=== PATIENT | male | born 1950 | race Caucasian/White ===

== ENCOUNTER 2016-05-15 16:58 | Emergency (ER) | payer OTHER ==
--- NOTE | 2016-05-15 18:04 | EKG REPORT ---
SEVERITY:- BORDERLINE ECG - SINUS RHYTHM BORDERLINE T ABNORMALITIES, ANTERIOR LEADS : Confirmed by: Shakir Joy MD 15-May-2016 18:03:16
[2016-05-15 18:11] LABS: ABSOLUTE BASOPHILS # (AUTO) 0.1 10^3/uL (0.0-0.2); ABSOLUTE EOSINOPHILS # (AUTO) 0.1 10^3/uL (0.0-0.6); ABSOLUTE LYMPHOCYTES (AUTO) 3.9 10^3/uL (0.5-4.7); ABSOLUTE NEUT (AUTO) 5.9 10^3/uL (1.7-8.2); BASOPHILS % (AUTO) 0.5 % (0-2); EOSINOPHILS % (AUTO) 0.7 % (0-6); HEMATOCRIT 46.4 % (37.9-51.0); HGB HCT DIFFERENCE -1.4; LYMPHOCYTES % (AUTO) 35.5 % (13-45); MEAN CORPUSCULAR HEMOGLOBIN 29.9 pg (27.0-33.4); MEAN CORPUSCULAR HGB CONC 32.4 g/dL (32.0-36.0); MEAN CORPUSCULAR VOLUME 92 fl (80-97); MONOCYTES % (AUTO) 9.5 % (3-13); RED BLOOD COUNT 5.04 10^6/uL (4.35-5.55); RED CELL DISTRIBUTION WIDTH 15.1 % (11.5-14.0); SEGMENTED NEUTROPHILS % (AUTO) 53.8 % (42-78)
--- NOTE | 2016-05-15 18:13 | ER Document Report ---
[id number] TRAVEL OUTSIDE OF THE [place] IN LAST 30 DAYS: No - HPI Onset: Other Onset/Duration: Persistent Associated symptoms: Other - see narrative Similar symptoms previously: Yes <TRACY BOOKER - Last Filed: 05/15/16 18:54> <OLIVE VARGAS - Last Filed: 05/18/16 01:23> - General Chief Complaint: Chest Pressure Stated Complaint: CHEST PRESSURE Notes: Patient is a 65-year-old male that presents to the emergency department today with complaints of chest pain, back pain, and a headache. Patient states the chest pain he is experiencing today is exactly like the chest pain he has been experiencing for "as long as he can remember". Patient states he felt like he was going to pass out prior to arrival. Patient states he has episodes like this frequently where he feels like he is going to pass out. Patient does note that his headache today is much worse than his normal headaches, he states it feels like someone is sticking an ice pick in the back of his head. Patient states his tongue feels "tingly". Patient states he has never had a CVA in the past. (TRACY BOOKER) - Related Data Allergies/Adverse Reactions: No Known Allergies Allergy (Verified 11/06/12 10:37) Past Medical History - General Information source: Patient, [facility] Records - Social History Smoking Status: Current Every Day Smoker Cigarette use (# per day): Yes Frequency of alcohol use: None Drug Abuse: None Lives with: Family Family History: Reviewed & Not Pertinent, CAD, Hyperlipidemia - Past Medical History Cardiac Medical History: Reports: Hx Coronary Artery Disease, Hx Hypercholesterolemia, Hx Peripheral Vascular Disease Pulmonary Medical History: Reports: Hx COPD Neurological Medical History: Reports: Hx Migraine, Hx Seizures GI Medical History: Reports: Hx Gastroesophageal Reflux Disease, Hx Hiatal Hernia, Hx Ulcer - PUD Musculoskeltal Medical History: Reports Hx Arthritis Psychiatric Medical History: Reports: Hx Anxiety, Hx Depression Past Surgical History: Reports: Hx Appendectomy, Hx Cardiac Catheterization - 8 stents placed, Hx Coronary Stent - X 7, Hx Tonsillectomy, Hx Vascular Surgery - LEFT ILIAC ARTERY STENTComment Only: Hx Bowel Surgery - EXPLORATORY STOMACH SURGERY - Immunizations Hx Diphtheria, Pertussis, Tetanus Vaccination: Yes Hx Pneumococcal Vaccination: 01/29/12 <TRACY BOOKER - Last Filed: 05/15/16 18:54> Review of Systems - Review of Systems Constitutional: No symptoms reported EENT: denies: Blurred vision Cardiovascular: See HPI, Chest pain, Syncope Respiratory: No symptoms reported Gastrointestinal: No symptoms reported Genitourinary: No symptoms reported Male Genitourinary: No symptoms reported Musculoskeletal: See HPI, Back pain Skin: No symptoms reported Hematologic/Lymphatic: No symptoms reported Neurological/Psychological: See HPI, Headaches -: Yes All other systems reviewed and negative <TRACY BOOKER - Last Filed: 05/15/16 18:54> Physical Exam <TRACY BOOKER - Last Filed: 05/15/16 18:54> <OLIVE VARGAS - Last Filed: 05/18/16 01:23> - Vital signs Vitals: Temp Resp BP Pulse Ox 97.9 F 21 H 124/77 98 05/15/16 17:20 05/15/16 17:20 05/15/16 17:20 05/15/16 17:20 (TRACY BOOKER) (OLIVE VARGAS) - Notes Notes: Physical Exam: General: Alert, appears well. HEENT: Normocephalic. Atraumatic. PERRL. Extraocular movements intact. Oropharynx clear. Neck: Supple. Non-tender. Respiratory: No respiratory distress. Clear and equal breath sounds bilaterally. Cardiovascular: Regular rate and rhythm. Abdominal: Healed midline scar. Non-tender. No distension. Normal Bowel Sounds. Back: Non-tender. No deformity or step off. Extremities: Moves all four extremities. Upper extremities: Normal inspection. Non-tender. Normal color. Normal ROM. Normal temperature. Lower extremities: Normal inspection. Non-tender. No edema. Normal color. Normal ROM. Normal temperature. Neurological: Normal cognition. AAOx4. Normal speech. Psychological: Normal affect. Normal Mood. Skin: Warm. Dry. Normal color. (TRACY BOOKER) Course - Laboratory Result Diagrams: 05/15/16 17:16 05/15/16 17:16 <TRACY BOOKER - Last Filed: 05/15/16 18:54> - Laboratory Result Diagrams: 05/15/16 17:16 05/15/16 17:16 <OLIVE VARGAS - Last Filed: 05/18/16 01:23> - Re-evaluation Re-evalutation: 05/15/16 20:51 I personally performed the services described in the documentation, reviewed and edited the documentation which was dictated to my scribe in my presence, and it accurately records my words and actions. Patient seen and evaluated for multiple complaints all of which are chronic in nature. He has a history of SC with cardiac stents but has chronic chest pain which he takes isosorbide for says the chest pain today is not any different than it is on a daily bright basis. It is not exertional in nature feels exactly same character quality frequency and duration. 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 [facility] stop giving him pain medications or the neurosurgeon won't give him any pain medications for chronic neck and back pain he thinks that's causing him to have a tension headache as he ran out of 4 days ago. He denies any headache blurred sees any blurred vision double vision strokelike symptoms weakness on one side body versus the other has normal neurological examination. Acute chest pain workup for chronic chest pain is negative acute EKG chest x-ray and labs. CT of the head is negative. Patient has chronic neck and back pain is been off of his medication for 4 days feels at that's what causing the pain as it has before when he ran out of his medication. Right now I don't think he has an acute pulmonary emboli acute coronary event. I am comfortable giving a few days with the pain medication but I can't be the primary prescriber that. He has not previously given him any pain medication here so he understands that that isn't something that can continue NSAIDs is to [facility] with [facility] in [facility]-2 days discussed reasons for ED return sooner (OLIVE VARGAS) - Vital Signs Vital signs: Temp Pulse Resp BP Pulse Ox 97.9 F 19 98/73 L 96 05/15/16 17:20 05/15/16 20:01 05/15/16 20:01 05/15/16 20:01 (TRACY BOOKER) (OLIVE VARAGS) - Laboratory Laboratory results interpreted by me: 05/15/16 05/15/16 17:16 18:45 WBC 11.0 H RDW 15.1 H Urine Blood SMALL H (OLIVE VARGAS) Discharge <JHONY,TRACY - Last Filed: 05/15/16 18:54> <OLIVE VARGAS - Last Filed: 05/18/16 01:23> - Discharge Clinical Impression: Chronic neck pain Cephalgia Qualifiers: Headache type: tension-type Headache chronicity pattern: unspecified pattern Intractability: not intractable Qualified Code(s): G44.209 - Tension-type headache, unspecified, not intractable Chest pain Qualifiers: Chest pain type: unspecified Qualified Code(s): R07.9 - Chest pain, unspecified Condition: Stable Disposition: HOME, SELF-CARE Additional Instructions: Headache The physician does not feel that the headache you are experiencing has a serious underlying cause. Most headaches are due to emotional stress, with resultant muscle tension (tension headache). Occasionally, headaches are secondary to changes in the blood vessels of the scalp (vascular headache and migraine headache). Sometimes, a headache is the first symptom of another developing illness, such as a viral infection. You have no evidence of stroke, bleeding, meningitis, or other serious cause of your headache. The treatment of headaches varies with the severity and cause of the pain. Not all headaches need pain shots. In fact, there is evidence that using narcotics for headaches may make them worse in the long run. The physician will determine the therapy that's in your best interest. If you develop a fever, if the headache is different from any you've previously experienced, or if the headache progressively worsens, then call your physician at once or go to the emergency room. Chest Pain of Unclear Cause The exact cause of your chest pain isn't clear. Fortunately, there is no evidence of a dangerous medical condition. Further testing may be required to find the source of the pain. Most often, we find that this pain is coming from the chest wall -- the muscles or rib joints in the chest. But chest pain can come from the lung and lung lining, the esophagus, the heart valves or heart lining, and even the stomach or gallbladder. Rest. Eat lightly until the pain is gone. We may prescribe medicine for pain and inflammation. You should call the physician immediately if the pain radiates to the shoulder, jaw or arms; if you start to run a fever or develop a cough; or if you develop shortness of breath, or other new or alarming symptoms. Chronic Pain Control Stress, inactivity, and depression make pain more severe regardless of the cause of the pain. Stress and poor physical condition can cause pain such as headaches and backache. Relaxation: Rest in a quiet place with your eyes closed for 20 minutes twice daily. Concentrate on a pleasant image, or simply "feel" your breathing. Clear your mind. Stress management: Deal with your "stressors." Either take action, or eliminate the stressor from your life. Don't let things hang over you. Accept those things you can't change. Nutrition: Eat small, balanced meals -- don't skip, don't overeat. Meals should be high-carbohydrate, low-sugar, low-fat. Exercise: Exercise helps painful conditions and eases stress. Get 30 minutes of moderate exercise, five days a week. Do an activity that does not flare your pain. Precautions: Pain which continues to disrupt daily activities, or which changes in nature, requires a medical evaluation. Pain Clinic referral is available. We do not manage chronic pain in the Emergency Department. We will try to appropriately help you through an acute flare of your chronic painful condition , but for on-going chronic pain that does not improve, you will need to see your private doctor or metal painter. We do not provide repeated medication management of chronic painful conditions. If you wish, we can provide the name of local pain management physicians. All up with her primary care physician tomorrow return for increasing worsening or new symptoms Prescriptions: Oxycodone HCl/Acetaminophen [Percocet 5-325 mg Tablet] 1 - 2 tab PO Q4H PRN #15 tablet PRN Reason: Scribe Documentation <TRACY BOOKER - Last Filed: 05/15/16 18:54> <OLIVE VARGAS - Last Filed: 05/18/16 01:23> - Scribe Written by Rajesh:: OLIVE VARGAS DO, SCRIBE 05/15/162050 Acting as scribe for: TRACY Mendez) (OLIVE VARGAS)
[2016-05-15 18:18] LABS: ANION GAP 12 (5-19); BLOOD UREA NITROGEN 14 mg/dL (7-20); CALCIUM 9.9 mg/dL (8.4-10.2); CARBON DIOXIDE 25 mmol/L (22-30); CHLORIDE 103 mmol/L (98-107); CREATININE RESULT 1.02 mg/dL (0.52-1.25); GLUCOSE 91 mg/dL (75-110); POTASSIUM 4.5 mmol/L (3.6-5.0)
[2016-05-15 18:31] LABS: TROPONIN I < 0.012 ng/mL
[2016-05-15 19:23] LABS: APPEARANCE,URINE CLEAR; BILIRUBIN,URINE NEGATIVE (NEGATIVE); GLUCOSE, URINE NEGATIVE (NEGATIVE); KETONES,URINE NEGATIVE (NEGATIVE); LEUKOCYTE ESTERASE,URINE NEGATIVE (NEGATIVE); NITRITE,URINE NEGATIVE (NEGATIVE); PROTEIN,URINE NEGATIVE (NEGATIVE); URINE SPECIFIC GRAVITY 1.008; UROBILINOGEN,URINE NEGATIVE mg/dL (<2.0)
[2016-05-15 19:35] LABS: URINE BARBITURATES SCREEN NEGATIVE; URINE METHADONE SCREEN NEGATIVE; URINE PHENCYCLIDINE SCREEN NEGATIVE
[2016-05-15 20:18] VITALS: BP 98/73
== END 2016-05-15 22:15 | disposition home or self-care (01) ==
LOC: ER 16:58
DX: G44.209 Tension-type headache, unspecified, not intractable (principal); R07.89 Other chest pain; M54.2 Cervicalgia; M54.9 Dorsalgia, unspecified; G89.29 Other chronic pain; H53.8 Other visual disturbances; R55 Syncope and collapse; R20.2 Paresthesia of skin; I25.10 Atherosclerotic heart disease of native coronary artery without angina pectoris; J44.9 Chronic obstructive pulmonary disease, unspecified; F17.210 Nicotine dependence, cigarettes, uncomplicated; Z98.61 Coronary angioplasty status; Z79.899 Other long term (current) drug therapy
CPT/HCPCS: 36415; 70450; 71010; 80048; 80307; 81001; 83880; 84484; 85025; 93005; 93010; 99285

== ENCOUNTER → 2016-07-31 | Outpatient (CLI) | payer MEDICAID | LOC: RAD 09:09 | PROVIDERS: ATTEND Surgery | DX: R10.30 Lower abdominal pain, unspecified (principal); K57.30 Diverticulosis of large intestine without perforation or abscess without bleeding; R91.1 Solitary pulmonary nodule; N26.1 Atrophy of kidney (terminal) | CPT/HCPCS: 74177; 82565 ==

== ENCOUNTER 2016-09-17 02:40 | Emergency (ER) | payer MEDICAID ==
[2016-09-17] MEDS ORDERED: ONDANSETRON HCL INJ/PF 4 MG/2 ML SDV IV ONE (03:46)
[2016-09-17] MEDS ORDERED: MORPHINE SULFATE 10 MG/ML INJ IV ONE (03:46)
--- NOTE | 2016-09-17 03:54 | ER Document Report ---
ED ENT - General Chief Complaint: Difficulty Swallowing Stated Complaint: UNABLE TO SWALLOW/DIFFICULTY BREATHING Time Seen by Provider: 09/17/16 03:39 Notes: Patient is a 66-year-old male who comes emergency department for chief complaint of sore throat, sensation of throat swelling, and difficulty swallowing. Symptoms started earlier today and have worsened throughout today. Patient states that he had left carotid endarterectomy performed at [facility] by Dr. hutchins and was discharged this morning. He denies fever or chills , nausea or vomiting, focal numbness or weakness, shortness of breath. Past medical history of COPD, hyperlipidemia, coronary artery disease, GERD. TRAVEL OUTSIDE OF THE [place] IN LAST 30 DAYS: No - Related Data Allergies/Adverse Reactions: No Known Allergies Allergy (Verified 11/06/12 10:37) Past Medical History - General Information source: Patient - Social History Smoking Status: Former Smoker Frequency of alcohol use: None Drug Abuse: None Lives with: Family Family History: Reviewed & Not Pertinent, CAD, Hyperlipidemia Patient has suicidal ideation: No Patient has homicidal ideation: No - Past Medical History Cardiac Medical History: Reports: Hx Coronary Artery Disease, Hx Hypercholesterolemia, Hx Peripheral Vascular Disease Denies: Hx Atrial Fibrillation, Hx Congestive Heart Failure, Hx Heart Attack , Hx Hypertension, Hx Pulmonary Embolism, Hx Heart Murmur Pulmonary Medical History: Reports: Hx COPD Denies: Hx Asthma, Hx Bronchitis, Hx Pneumonia, Hx Respiratory Failure, Hx Sleep Apnea, Hx Tuberculosis Neurological Medical History: Reports: Hx Migraine, Hx Seizures Endocrine Medical History: Denies: Hx Graves' Disease, Hx Hyperthyroidism, Hx Hypothyroidism Renal/ Medical History: Denies: Hx Benign Prostatic Hyperplasia, Hx End Stage Renal Disease, Hx Kidney Stones, Hx Peritoneal Dialysis Malignancy Medical History: Denies Hx Leukemia, Denies Hx Lung Cancer GI Medical History: Reports: Hx Gastroesophageal Reflux Disease, Hx Hiatal Hernia, Hx Ulcer - PUD . Denies: Hx Crohn's Disease, Hx Irritable Bowel, Hx Liver Failure Musculoskeltal Medical History: Reports Hx Arthritis, Denies Hx Fibromyalgia, Denies Hx Muscular Dystrophy Psychiatric Medical History: Reports: Hx Anxiety, Hx Depression Traumatic Medical History: Denies: Hx Fractures Infectious Medical History: Denies: Hx HIV Past Surgical History: Reports: Hx Appendectomy, Hx Cardiac Catheterization - 8 stents placed, Hx Coronary Stent - X 7, Hx Tonsillectomy, Hx Vascular Surgery - LEFT ILIAC ARTERY STENT. Denies: Hx Cholecystectomy, Hx Colostomy, Hx Coronary Artery Bypass Graft, Hx Gastric Bypass Surgery, Hx Herniorrhaphy, Hx Pacemaker. Comment Only: Hx Bowel Surgery - EXPLORATORY STOMACH SURGERY - Immunizations Hx Diphtheria, Pertussis, Tetanus Vaccination: Yes Hx Pneumococcal Vaccination: 01/29/12 Review of Systems - Review of Systems Constitutional: No symptoms reported EENT: See HPI Cardiovascular: No symptoms reported Respiratory: No symptoms reported Gastrointestinal: No symptoms reported Genitourinary: No symptoms reported Male Genitourinary: No symptoms reported Musculoskeletal: No symptoms reported Skin: No symptoms reported Hematologic/Lymphatic: No symptoms reported Neurological/Psychological: No symptoms reported Physical Exam - Vital signs Vitals: Temp Pulse Resp BP Pulse Ox 97.3 F 96 20 95/63 L 92 09/17/16 02:51 09/17/16 02:51 09/17/16 02:51 09/17/16 02:51 09/17/16 02:51 Interpretation: Normal - General General appearance: Alert, Anxious In distress: None - HEENT Head: Normocephalic, Atraumatic Eyes: Normal Conjunctiva: Normal Extraocular movements intact: Yes Eyelashes: Normal Pupils: PERRL Ears: Normal External canal: Normal Tympanic membrane: Normal Sinus: Normal Nasal: Normal Mouth/Lips: Normal Mucous membranes: Normal Pharynx: Erythema - Very mild erythema, no overt edema, tonsillar hypertrophy, or other abnormality noted Neck: Other - Stable wound over the left anterior lateral neck extending up near the jaw, no noted surrounding erythema, questionable mild swelling which is difficult to evaluate with patient's large neck - Respiratory Respiratory status: No respiratory distress Chest status: Nontender Breath sounds: Normal Chest palpation: Normal - Cardiovascular Rhythm: Regular Heart sounds: Normal auscultation Murmur: No - Abdominal Inspection: Normal Distension: No distension Bowel sounds: Normal Tenderness: Nontender Organomegaly: No organomegaly - Back Back: Normal, Nontender - Extremities General upper extremity: Normal inspection, Nontender, Normal color, Normal ROM , Normal temperature General lower extremity: Normal inspection, Nontender, Normal color, Normal ROM , Normal temperature, Normal weight bearing. No: Corinne's sign - Neurological Neuro grossly intact: Yes Cognition: Normal Orientation: AAOx4 Dante Coma Scale Eye Opening: Spontaneous [place] Coma Scale Verbal: Oriented Dante Coma Scale Motor: Obeys Commands [place] Coma Scale Total: 15 Speech: Normal Motor strength normal: LUE, RUE, LLE, RLE Sensory: Normal - Psychological Associated symptoms: Normal affect, Normal mood - Skin Skin Temperature: Warm Skin Moisture: Dry Skin Color: Normal Course - Re-evaluation Re-evalutation: Mild erythema of the throat with no significant swelling, no airway compromise. Patient has a large tongue and a large neck making it difficult to evaluate. Patient initially anxious but after small amount of morphine and Zofran and this resolved and he states his symptoms have resolved as well. CBC with mild leukocytosis which is nonspecific after surgery, chemistry unremarkable, strep is negative. Discussed with Dr. Sutherland. Called and spoke to physician air conditioning service technician for patient's surgeon, Dr. Swanson, he recommends that a CT of the neck soft tissues can be performed with contrast despite recent endarterectomy. He recommends this be performed if patient cannot be adequately evaluated for hematoma. Patient has a very large neck and this makes evaluation difficult, hard to tell if there is swelling or not. Discussed with patient, he agrees to CAT scan imaging. CAT scan imaging shows edema, slight swelling of the submandibular gland, postsurgical changes, no overt abnormality, no evidence of bleeding or abscess. Discussed again with Dr. Swanson, he states he will discuss with Dr. Culp and patient may be contacted for a closer follow-up, recommend ice pack to the area to reduce swelling, recommend patient return if symptoms worsen. Patient states he is ready to go home, satisfied with results, states understanding of return precautions and follow-up. Patient oxygenation on room air is slightly low, however he has COPD, his lungs are clear, he does not have tachypnea, he denies being short of breath, he states he feels good and he wants to go home. He ambulates without difficulty. - Vital Signs Vital signs: Temp Pulse Resp BP Pulse Ox 97.4 F 86 18 116/63 90 L 09/17/16 07:21 09/17/16 07:21 09/17/16 07:21 09/17/16 07:21 09/17/16 07:21 - Laboratory Result Diagrams: 09/17/16 03:50 09/17/16 03:50 Laboratory results interpreted by me: 09/17/16 03:50 WBC 13.8 H RDW 14.8 H Absolute Neutrophils 9.5 H Absolute Monocytes 1.5 H Discharge - Discharge Clinical Impression: Neck swelling, Post-operative state Condition: Stable Disposition: HOME, SELF-CARE Additional Instructions: The imaging shows some localized swelling but no bleeding into the tissue or evidence of infection. You can apply ice/cold packs to the area to reduce swelling. Continue your medications. I spoke with Dr. Swanson, air conditioning service technician for Dr. Culp, you may be contacted for closer followup than scheduled. Return immediately for any concerning worsening symptoms including difficulty breathing, worsening swelling, fever, etc.
[2016-09-17 04:05] LABS: ABSOLUTE BASOPHILS # (AUTO) 0.1 10^3/uL (0.0-0.2); ABSOLUTE EOSINOPHILS # (AUTO) 0.2 10^3/uL (0.0-0.6); ABSOLUTE LYMPHOCYTES (AUTO) 2.5 10^3/uL (0.5-4.7); ABSOLUTE MONOCYTES (AUTO) 1.5 10^3/uL (0.1-1.4); ABSOLUTE NEUT (AUTO) 9.5 10^3/uL (1.7-8.2); BASOPHILS % (AUTO) 0.9 % (0-2); EOSINOPHILS % (AUTO) 1.2 % (0-6); HEMATOCRIT 43.7 % (37.9-51.0); HEMOGLOBIN 14.7 g/dL (13.5-17.0); HGB HCT DIFFERENCE 0.4; LYMPHOCYTES % (AUTO) 18.3 % (13-45); MEAN CORPUSCULAR HEMOGLOBIN 30.6 pg (27.0-33.4); MEAN CORPUSCULAR HGB CONC 33.5 g/dL (32.0-36.0); MEAN CORPUSCULAR VOLUME 91 fl (80-97); MONOCYTES % (AUTO) 10.6 % (3-13); RED CELL DISTRIBUTION WIDTH 14.8 % (11.5-14.0); WHITE BLOOD COUNT 13.8 10^3/uL (4.0-10.5)
[2016-09-17 04:54] LABS: ALANINE AMINOTRANSFERASE 21 U/L (21-72); ALBUMIN 3.6 g/dL (3.5-5.0); ALKALINE PHOSPHATASE 97 U/L (38-126); ANION GAP 10 (5-19); ASPARTATE AMINO TRANSFERASE 18 U/L (17-59); BILIRUBIN,DIRECT 0.4 mg/dL (0.0-0.4); BILIRUBIN,TOTAL 0.9 mg/dL (0.2-1.3); BLOOD UREA NITROGEN 12 mg/dL (7-20); CARBON DIOXIDE 27 mmol/L (22-30); CHLORIDE 101 mmol/L (98-107); CREATININE RESULT 0.96 mg/dL (0.52-1.25); GLUCOSE 110 mg/dL (75-110); POTASSIUM 4.5 mmol/L (3.6-5.0); SODIUM 138.3 mmol/L (137-145); TOTAL PROTEIN 6.6 g/dL (6.3-8.2)
[2016-09-17 07:22] VITALS: BP 116/63
== END 2016-09-17 07:22 | disposition home or self-care (01) ==
LOC: ER 02:40
DX: T81.9XXA Unspecified complication of procedure, initial encounter (principal); R22.1 Localized swelling, mass and lump, neck; R06.02 Shortness of breath; J02.9 Acute pharyngitis, unspecified; Z87.891 Personal history of nicotine dependence
CPT/HCPCS: 99284; 96374; 96375; 36415; 87070; 87880; 85025; 80053; 70491; J2270; J2405

== ENCOUNTER 2018-04-04 16:19 | Observation (INO) | payer OTHER, MEDICAID ==
[2018-04-04 17:06] LABS: ABSOLUTE BASOPHILS # (AUTO) 0.1 10^3/uL (0.0-0.2); ABSOLUTE EOSINOPHILS # (AUTO) 0.1 10^3/uL (0.0-0.6); ABSOLUTE MONOCYTES (AUTO) 0.7 10^3/uL (0.1-1.4); ABSOLUTE NEUT (AUTO) 8.2 10^3/uL (1.7-8.2); BASOPHILS % (AUTO) 0.9 % (0-2); EOSINOPHILS % (AUTO) 0.9 % (0-6); HEMATOCRIT 46.4 % (37.9-51.0); HEMOGLOBIN 15.9 g/dL (13.5-17.0); LYMPHOCYTES % (AUTO) 17.7 % (13-45); MEAN CORPUSCULAR HEMOGLOBIN 32.5 pg (27.0-33.4); MEAN CORPUSCULAR HGB CONC 34.3 g/dL (32.0-36.0); MEAN CORPUSCULAR VOLUME 95 fl (80-97); MONOCYTES % (AUTO) 6.7 % (3-13); PLATELET COUNT 149 10^3/uL (150-450); RED BLOOD COUNT 4.89 10^6/uL (4.35-5.55); RED CELL DISTRIBUTION WIDTH 14.3 % (11.5-14.0); SEGMENTED NEUTROPHILS % (AUTO) 73.8 % (42-78); TOTAL CELLS COUNTED % (AUTO) 100 %; WHITE BLOOD COUNT 11.1 10^3/uL (4.0-10.5)
[2018-04-04] MEDS: NORMAL SALINE 1000 ML 1,000 ML IV PRN ×2 (17:18→19:19)
[2018-04-04 17:21] LABS: ALANINE AMINOTRANSFERASE 22 U/L (21-72); ALBUMIN 3.7 g/dL (3.5-5.0); ALKALINE PHOSPHATASE 75 U/L (38-126); ANION GAP 9 (5-19); ASPARTATE AMINO TRANSFERASE 17 U/L (17-59); BILIRUBIN,DIRECT 0.3 mg/dL (0.0-0.4); BILIRUBIN,TOTAL 0.5 mg/dL (0.2-1.3); BLOOD UREA NITROGEN 18 mg/dL (7-20); CALCIUM 9.2 mg/dL (8.4-10.2); CARBON DIOXIDE 27 mmol/L (22-30); CHLORIDE 102 mmol/L (98-107); CREATINE KINASE 40 U/L (55-170); GLUCOSE 101 mg/dL (75-110); POTASSIUM 4.7 mmol/L (3.6-5.0); SODIUM 137.5 mmol/L (137-145); TOTAL PROTEIN 6.8 g/dL (6.3-8.2)
[2018-04-04 17:34] LABS: CREATINE KINASE MB 0.67 ng/mL (<4.55)
[2018-04-04 17:35] LABS: TROPONIN I < 0.012 ng/mL
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
[2018-04-04 18:09] LABS: APPEARANCE,URINE SLIGHTLY-CLOUDY; BILIRUBIN,URINE NEGATIVE (NEGATIVE); COLOR,URINE YELLOW; GLUCOSE, URINE NEGATIVE (NEGATIVE); KETONES,URINE NEGATIVE (NEGATIVE); LEUKOCYTE ESTERASE,URINE NEGATIVE (NEGATIVE); NITRITE,URINE NEGATIVE (NEGATIVE); PROTEIN,URINE 30 mg/dL (NEGATIVE)
--- NOTE | 2018-04-04 18:22 | RADIOLOGY REPORT (SQ) ---
EXAM DESCRIPTION: CT HEAD WITHOUT COMPLETED DATE/TIME: 04/04/2018 6:07 pm REASON FOR STUDY: LOC, ? Seizure COMPARISON: 05/15/2016 TECHNIQUE: Axial images acquired through the brain without intravenous contrast. Images reviewed wi th bone, brain and subdural windows. Additional sagittal and coronal reconstructions were generated. Images stored on PACS. All CT scanners at this facility use dose modulation, iterative reconstruction, and/or weight based d osing when appropriate to reduce radiation dose to as low as reasonably achievable (ALARA). [facility]: Dose Right [facility]: CareDose [facility]: Dose Right [facility]: Teradose 4D [facility]: Smart WOWIO RADIATION DOSE: CT Rad equipment meets quality standard of care and radiation dose reduction techniq ues were employed. CTDIvol: 53.2 mGy. DLP: 1097 mGy-cm. mGy. LIMITATIONS: None. FINDINGS: VENTRICLES: Normal size and contour. CEREBRUM: No masses. No hemorrhage. No midline shift. No evidence for acute infarction. Normal gra y/white matter differentiation. No areas of low density in the white matter. CEREBELLUM: No masses. No hemorrhage. No alteration of density. No evidence for acute infarction. EXTRAAXIAL SPACES: No fluid collections. No masses. ORBITS AND GLOBE: No intra- or extraconal masses. Normal contour of globe without masses. CALVARIUM: No fracture. PARANASAL SINUSES: No fluid or mucosal thickening. SOFT TISSUES: No mass or hematoma. OTHER: No other significant finding. IMPRESSION: NORMAL BRAIN CT WITHOUT CONTRAST. EVIDENCE OF ACUTE STROKE: NO. COMMENT: Quality ID # [id number]: Final reports with documentation of one or more dose reduction techniques (e.g., Automated exposure control, adjustment of the mA and/or kV according to patient size, use of iterative reconstruction technique) TECHNICAL DOCUMENTATION: JOB ID: [id number] [employer]- All Rights Reserved Reading location - IP/workstation name: BE
[2018-04-04 19:13] LABS: URINE AMPHETAMINES SCREEN NEGATIVE; URINE BARBITURATES SCREEN NEGATIVE; URINE BENZODIAZEPINES SCREEN NEGATIVE; URINE COCAINE SCREEN NEGATIVE; URINE MARIJUANA (THC) SCREEN UNCONFIRMED POSITIVE; URINE METHADONE SCREEN NEGATIVE; URINE PHENCYCLIDINE SCREEN NEGATIVE
[2018-04-04] MEDS ORDERED: IPRATROPIUM/ALBUTEROL 0.5-2.5 MG/3 ML AMPUL NEB PRN (19:50)
[2018-04-04] MEDS ORDERED: ACETAMINOPHEN 325 MG TABLET PO PRN (19:50)
[2018-04-04] MEDS ORDERED: PROMETHAZINE HCL 25 MG TABLET PO PRN (20:09)
[2018-04-04] MEDS ORDERED: NITROGLYCERIN 0.4 MG/TAB 25 TAB/BOTTLE SL PRN (20:11)
[2018-04-04] MEDS ORDERED: TRAZODONE HCL 50 MG TABLET PO PRN (20:14)
[2018-04-04] MEDS: METOPROLOL TARTRATE 50 MG TABLET PO SCH (21:28)
[2018-04-04] MEDS: PREGABALIN 75 MG CAPSULE PO SCH (21:28)
[2018-04-04] MEDS: ATORVASTATIN CALCIUM 80 MG TABLET PO SCH (21:29)
[2018-04-04] MEDS: BUDESONIDE/FORMOTEROL 160-4.5 MCG 60 PUFF/6 GM MDI IH SCH (21:29)
[2018-04-04] MEDS: OXYCODONE HCL IR 5 MG TABLET PO PRN (21:29)
[2018-04-04] MEDS: LANSOPRAZOLE 15 MG TAB.RAP.DR PO SCH (21:33)
[2018-04-04] MEDS: ENOXAPARIN SODIUM INJ 40 MG/0.4 ML DISP.SYRIN SUBCUT SCH (21:34)
--- NOTE | 2018-04-04 22:39 | EKG REPORT ---
SEVERITY:- NORMAL ECG - SINUS RHYTHM : Confirmed by: Ryan Ocasio 04-Apr-2018 22:38:33
[2018-04-05 05:31] LABS: ABSOLUTE BASOPHILS # (AUTO) 0.1 10^3/uL (0.0-0.2); ABSOLUTE EOSINOPHILS # (AUTO) 0.1 10^3/uL (0.0-0.6); ABSOLUTE LYMPHOCYTES (AUTO) 3.8 10^3/uL (0.5-4.7); ABSOLUTE MONOCYTES (AUTO) 0.8 10^3/uL (0.1-1.4); ABSOLUTE NEUT (AUTO) 4.6 10^3/uL (1.7-8.2); BASOPHILS % (AUTO) 0.8 % (0-2); EOSINOPHILS % (AUTO) 1.4 % (0-6); HEMATOCRIT 44.3 % (37.9-51.0); HEMOGLOBIN 15.3 g/dL (13.5-17.0); LYMPHOCYTES % (AUTO) 40.7 % (13-45); MEAN CORPUSCULAR HGB CONC 34.5 g/dL (32.0-36.0); MEAN CORPUSCULAR VOLUME 96 fl (80-97); MONOCYTES % (AUTO) 8.6 % (3-13); PLATELET COUNT 157 10^3/uL (150-450); RED BLOOD COUNT 4.64 10^6/uL (4.35-5.55); RED CELL DISTRIBUTION WIDTH 14.1 % (11.5-14.0); SEGMENTED NEUTROPHILS % (AUTO) 48.5 % (42-78); TOTAL CELLS COUNTED % (AUTO) 100 %; WHITE BLOOD COUNT 9.4 10^3/uL (4.0-10.5)
[2018-04-05 05:52] LABS: ANION GAP 10 (5-19); BLOOD UREA NITROGEN 17 mg/dL (7-20); CALCIUM 8.8 mg/dL (8.4-10.2); CARBON DIOXIDE 26 mmol/L (22-30); CHLORIDE 107 mmol/L (98-107); GLUCOSE 94 mg/dL (75-110); POTASSIUM 5.1 mmol/L (3.6-5.0); SODIUM 143.1 mmol/L (137-145)
[2018-04-05] MEDS: LANSOPRAZOLE 15 MG TAB.RAP.DR PO SCH ×2 (06:17→16:32)
[2018-04-05] MEDS ORDERED: ISOSORBIDE MONONITRATE 60 MG TAB.ER.24H PO SCH (10:00)
[2018-04-05] MEDS: METOPROLOL TARTRATE 50 MG TABLET PO SCH (10:14)
[2018-04-05] MEDS: ISOSORBIDE MONONITRATE 30 MG TAB.ER.24H PO SCH (10:14)
[2018-04-05] MEDS: CITALOPRAM HYDROBROMIDE 20 MG TABLET PO SCH (10:14)
[2018-04-05] MEDS: DOCUSATE SODIUM 100 MG CAPSULE PO SCH ×2 (10:14→16:32)
[2018-04-05] MEDS: ASPIRIN 81 MG TABLET, CHEWABLE PO SCH (10:14)
[2018-04-05] MEDS: CLOPIDOGREL BISULFATE 75 MG TABLET PO SCH (10:15)
[2018-04-05] MEDS: BUDESONIDE/FORMOTEROL 160-4.5 MCG 60 PUFF/6 GM MDI IH SCH ×2 (10:15→21:15)
[2018-04-05] MEDS: ENOXAPARIN SODIUM INJ 40 MG/0.4 ML DISP.SYRIN SUBCUT SCH (10:15)
[2018-04-05] MEDS: PREGABALIN 75 MG CAPSULE PO SCH ×2 (10:15→21:15)
[2018-04-05] MEDS: OXYCODONE HCL IR 5 MG TABLET PO PRN ×3 (10:17→22:24)
[2018-04-05] MEDS ORDERED: LORAZEPAM INJ 2 MG/1 ML VIAL IV PRN (12:16)
--- NOTE | 2018-04-05 13:16 | EEG PRO FEE REPORT ---
EEG INTERPRETATION PATIENT NAME: LILLY VEGA ROOM#: [id number] ORDER#: [id number] DATE OF STUDY: 04/05/2018 : 1950 REFERRING MD: ELEAZAR RENNER MD MEDICATIONS: Tylenol, aspirin, DuoNeb, Lipitor, Symbicort, Celexa, Plavix, Lovenox, Imdur, Lansoprazole, Lopressor, Nitroglycerin, Oxycodone, Lyrica, Trazodone, Phenergan History This is a 67 year old right handed man with a history of COPD, cardiac catheterization with 8 stents placed, hypertension, migraine, hernia, solitary kidney, diverticulitis, peptic ulcer disease, stomach resection, left iliac artery stents and a history of syncope since age 22. He describes being at home, feeling weak, and passing out. This EEG was requested for possible seizures. EEG Interpretation This EEG was recorded in the awake, drowsy, and stage 1 sleep states. The awake EEG is characterized by a fairly well organized background with a well developed and reactive posterior dominant rhythm of 8.5 Hz. Drowsiness is characterized by slowing of the background rhythms. Vertex waves were seen in the midline head regions. There were several small arousals during stage I sleep. Stage II sleep was not obtained. Photic stimulation resulted in no significant changes. There were no epileptiform abnormalities. The EKG showed a regular rhythm in the high 50s. There were several electrode pops impairing interpretation. EEG Impression This EEG is within normal limits for age. There were arousals during stage I sleep and snoring noted by the cath lab technologist that may warrant further investigation (e.g. sleep study). The EKG showed a heart rate in the high 50s that may warrant investigation. INTERPRETING PHYSICIAN: BECKI REYES M.D. /: GREG TT: 1259 ID: [id number] /: [id number] TD: [id number] JOB: [id number] cc:Handy NELSON M.D. ENRICO versace, MD > MTDD
[2018-04-05] MEDS: NICOTINE 21 MG/24 HR PATCH.TD24 TD SCH (15:01)
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
[2018-04-05] MEDS ORDERED: LEVETIRACETAM 500 MG TABLET PO ONE (15:30)
--- NOTE | 2018-04-05 19:41 | PDOC PROGRESS REPORT ---
Subjective Progress Note for:: 04/05/18 - Seen on rounds this morning Subjective:: Spoke with family and patient at bedside. He has not had a seizure episode since admission. I talked to his and patient and the symptoms and presenting history is very indicating of a seizure activity. Reason For Visit: POSSIBLE SEIZUFRE, SYNCOPE Physical Exam Vital Signs: Temp Pulse Resp BP Pulse Ox 98.1 F 60 19 111/60 95 04/05/18 16:29 04/05/18 16:29 04/05/18 16:29 04/05/18 16:29 04/05/18 16:29 Intake & Output 04/04/18 04/05/18 04/06/18 06:59 06:59 06:59 Intake Total 1000 820 Balance 1000 820 Weight 245 lb 5.992 oz General appearance: PRESENT: no acute distress Head exam: PRESENT: atraumatic, normocephalic Eye exam: PRESENT: EOMI. ABSENT: conjunctival injection, scleral icterus Ear exam: PRESENT: normal external ear exam Neck exam: PRESENT: tracheal deviation Respiratory exam: PRESENT: clear to auscultation diego, symmetrical Cardiovascular exam: PRESENT: +S1, +S2 Pulses: PRESENT: +2 pedal pulses bilateral GI/Abdominal exam: PRESENT: normal bowel sounds, soft. ABSENT: tenderness Extremities exam: ABSENT: pedal edema Neurological exam: PRESENT: alert, awake, oriented to person, oriented to place , oriented to time, oriented to situation, reflexes normal, CN II-XII grossly intact Skin exam: PRESENT: dry, warm Results Laboratory Results: 04/05/18 05:06 04/05/18 05:06 04/05/18 04/05/18 05:06 05:06 WBC 9.4 RBC 4.64 Hgb 15.3 Hct 44.3 MCV 96 MCH 33.0 MCHC 34.5 RDW 14.1 H Plt Count 157 Seg Neutrophils % 48.5 Lymphocytes % 40.7 Monocytes % 8.6 Eosinophils % 1.4 Basophils % 0.8 Absolute Neutrophils 4.6 Absolute Lymphocytes 3.8 Absolute Monocytes 0.8 Absolute Eosinophils 0.1 Absolute Basophils 0.1 Sodium 143.1 Potassium 5.1 H Chloride 107 Carbon Dioxide 26 Anion Gap 10 BUN 17 Creatinine 1.01 Est GFR ( Amer) > 60 Est GFR (Non-Af Amer) > 60 Glucose 94 Calcium 8.8 Magnesium 2.1 04/04/18 04/05/18 04/05/18 23:05 05:06 10:00 Troponin I < 0.012 < 0.012 < 0.012 Impressions: Head CT 04/04/18 17:54 IMPRESSION: NORMAL BRAIN CT WITHOUT CONTRAST. EVIDENCE OF ACUTE STROKE: NO. Assessment & Plan - Diagnosis (1) COPD (chronic obstructive pulmonary disease) Qualifiers: COPD type: unspecified COPD Qualified Code(s): J44.9 - Chronic obstructive pulmonary disease, unspecified Is this a current diagnosis for this admission?: Yes (2) Depression Qualifiers: Depression Type: unspecified Qualified Code(s): F32.9 - Major depressive disorder, single episode, unspecified Is this a current diagnosis for this admission?: Yes (3) Hypotension Qualifiers: Hypotension type: other hypotension type Qualified Code(s): I95.89 - Other hypotension Is this a current diagnosis for this admission?: Yes (4) Loss of consciousness Is this a current diagnosis for this admission?: Yes (5) Seizure Is this a current diagnosis for this admission?: Yes (6) CAD (coronary artery disease) Qualifiers: Coronary Disease-Associated Artery/Lesion type: [place] artery Associated angina: without angina Is this a current diagnosis for this admission?: Yes - Plan Summary Plan Summary: Seizure-given the story and symptoms presented by patient and it is evident that he has had a seizure. Patient admits to me that he has been having these episodes since he was in his 20s. He tells me that his last episode of about 2 years ago. He did not tell me of any provoking factors in the last few days that would have brought about the seizure. He underwent EEG and it was normal. They do however recommend possible sleep study and noted bradycardia. At this point I have decided to load him with Keppra and continue from tomorrow. I discussed with patient and about following up with neurologist regarding his seizures. If he remains asymptomatic then we will consider discharging him in a.m.
[2018-04-05] MEDS: ATORVASTATIN CALCIUM 80 MG TABLET PO SCH (21:14)
[2018-04-05] MEDS: METOPROLOL TARTRATE 25 MG TABLET PO SCH (21:14)
[2018-04-06] MEDS: OXYCODONE HCL IR 5 MG TABLET PO PRN ×2 (04:27→10:26)
[2018-04-06] MEDS: LANSOPRAZOLE 15 MG TAB.RAP.DR PO SCH (05:02)
[2018-04-06] MEDS: METOPROLOL TARTRATE 25 MG TABLET PO SCH (09:39)
[2018-04-06] MEDS: ISOSORBIDE MONONITRATE 30 MG TAB.ER.24H PO SCH (09:39)
[2018-04-06] MEDS: ASPIRIN 81 MG TABLET, CHEWABLE PO SCH (09:39)
[2018-04-06] MEDS: CITALOPRAM HYDROBROMIDE 20 MG TABLET PO SCH (09:39)
[2018-04-06] MEDS: NICOTINE 21 MG/24 HR PATCH.TD24 TD SCH (09:39)
[2018-04-06] MEDS: PREGABALIN 75 MG CAPSULE PO SCH (09:39)
[2018-04-06] MEDS: DOCUSATE SODIUM 100 MG CAPSULE PO SCH (09:39)
[2018-04-06] MEDS: BUDESONIDE/FORMOTEROL 160-4.5 MCG 60 PUFF/6 GM MDI IH SCH (09:40)
[2018-04-06] MEDS: ENOXAPARIN SODIUM INJ 40 MG/0.4 ML DISP.SYRIN SUBCUT SCH (09:40)
[2018-04-06] MEDS: CLOPIDOGREL BISULFATE 75 MG TABLET PO SCH (09:40)
[2018-04-06] MEDS ORDERED: LEVETIRACETAM 500 MG TABLET PO SCH (10:00)
--- NOTE | 2018-04-06 11:54 | PDOC DISCHARGE SUMMARY ---
General - Admit/Disc Date/PCP Admission Date/Primary Care Provider: 04/04/18 19:27 JONI CANO MD Discharge Date: 04/06/18 - seen on rounds this morning - Discharge Diagnosis (1) COPD (chronic obstructive pulmonary disease) Is this a current diagnosis for this admission?: Yes (2) Depression Is this a current diagnosis for this admission?: Yes (3) Hypotension Is this a current diagnosis for this admission?: Yes (4) Loss of consciousness Is this a current diagnosis for this admission?: Yes (5) Seizure Is this a current diagnosis for this admission?: Yes (6) CAD (coronary artery disease) Is this a current diagnosis for this admission?: Yes (7) Hyperprolactinemia Is this a current diagnosis for this admission?: Yes - Additional Information Resuscitation Status: Full Code Discharge Diet: As Tolerated Discharge Activity: Activity As Tolerated, Slowly Increase Activity Prescriptions: Levetiracetam [Keppra 500 mg Tablet] 500 mg PO DAILY #30 tablet Home Medications: Albuterol Sulfate [Proair HFA Inhalation Aerosol 8.5 gm MDI] 1 puff IH Q6HP PRN 04/04/18 Aspirin [Ecotrin 81 mg EC Tablet] 81 mg PO DAILY 04/04/18 Atorvastatin Calcium [Lipitor 40 mg Tablet] 40 mg PO QHS 04/04/18 Citalopram Hydrobromide [Celexa 20 mg Tablet] 20 mg PO DAILY 04/04/18 Clopidogrel Bisulfate [Plavix 75 mg Tablet] 75 mg PO DAILY 04/04/18 Ipratropium/Albuterol Sulfate [Combivent Respimat 4 gm Mdi] 1 puff IH Q6 Metoprolol Tartrate [Lopressor 25 mg Tablet] 25 mg PO Q12 04/04/18 Nitroglycerin [Nitrostat 0.4 mg (1/150 Gr) Tabs 25/Bottle] 1 tab SL Q5MP PRN 10/15 [place]-3 Acid Ethyl Esters [Lovaza 1 gm Capsule] 1 gm PO DAILY 04/04/18 Omeprazole 40 mg PO DAILY 04/04/18 Oxycodone HCl [Oxy-Ir 5 mg Tablet] 5 mg PO Q6HP PRN 04/04/18 Budesonide/Formoterol Fumarate [Symbicort HFA 80-4.5 mcg Inhaler 6.9 gm] 2 puff IH Q12 04/05/18 Isosorbide Mononitrate [Imdur 30 mg Tablet.er] 30 mg PO DAILY 04/05/18 Pregabalin [Lyrica 75 mg Capsule] 75 mg PO Q12 04/05/18 Ranolazine [Ranexa 500 mg Tab.sr] 500 mg PO Q12 04/05/18 Acetaminophen [Tylenol 325 mg Tablet] 650 mg PO Q4HP PRN tablet 04/06/18 Aspirin [Aspirin 81 mg Chewable Tablet] 81 mg PO DAILY tab.chew 04/06/18 Budesonide/Formoterol Fumarate [Symbicort HFA 160-4.5 mcg Inhaler 6 gm] 2 puff IH Q12 inhaler 04/06/18 Citalopram Hydrobromide [Celexa 20 mg Tablet] 40 mg PO DAILY tablet 04/06/18 Clopidogrel Bisulfate [Plavix 75 mg Tablet] 75 mg PO DAILY tablet 04/06/18 Isosorbide Mononitrate [Imdur 30 mg Tablet.er] 30 mg PO DAILY tab.er.24h Levetiracetam [Keppra 500 mg Tablet] 500 mg PO DAILY #30 tablet 04/06/18 Lorazepam [Ativan Inj 2 mg/1 ml Vial] 1 mg IV Q2HP PRN vial 04/06/18 Metoprolol Tartrate [Lopressor 25 mg Tablet] 25 mg PO Q12 tablet 04/06/18 Nitroglycerin [Nitrostat 0.4 mg (1/150 Gr) Tabs 25/Bottle] 1 tab SL Q5MP PRN bottle 04/06/18 Pregabalin [Lyrica 75 mg Capsule] 75 mg PO Q12 capsule 04/06/18 History of Present Illness History of Present Illness: LILLY VEGA is a 67 year old male who was admitted for seizures. please see H& P for full A&P Hospital Course Hospital Course: after admission he was placed on telemetry to monitor him. he had an EEG which did not show any abnormal with his brain waves. i discussed his symptoms with him. he's been having these seizure spells since he was 22 years old. he has never been to anything for it. advised him to go to neurology multiple times- states he will go. his prolactin was elevated- slightly- not sure why- medication related?. i spoke to him about this- advised to talk to his neurologist about this within 1-2 weeks. repeat prolactin in 1-2 months. for his seizures i did start him on keppra for now- advised to talk to his pcp and neurologist about whether to continue or not. he did not have any more seizure episodes since admission- today he's requesting to leave- discussed about MRI brain for his prolactin but he's reluctant to stay- wants to go home. he wants to follow up outpatient. gave strict return precautions. Physical Exam Vital Signs: Temp Pulse Resp BP Pulse Ox 97.4 F 98 14 108/52 L 95 04/06/18 07:51 04/06/18 10:32 04/06/18 10:32 04/06/18 07:51 04/06/18 10:32 Intake & Output 04/05/18 04/06/18 04/07/18 06:59 06:59 06:59 Intake Total 1000 1322 50 Balance 1000 1322 50 Weight 245 lb 5.992 oz 243 lb 6.245 oz General appearance: PRESENT: no acute distress Head exam: PRESENT: atraumatic, normocephalic Eye exam: PRESENT: EOMI. ABSENT: conjunctival injection, scleral icterus Ear exam: PRESENT: normal external ear exam Mouth exam: PRESENT: tongue midline Teeth exam: PRESENT: poor dentation Neck exam: ABSENT: tracheal deviation Respiratory exam: PRESENT: clear to auscultation [place], symmetrical Pulses: PRESENT: +2 pedal pulses bilateral GI/Abdominal exam: PRESENT: normal bowel sounds, soft. ABSENT: tenderness Neurological exam: PRESENT: alert, awake, oriented to person, oriented to place , oriented to time, oriented to situation, CN II-XII grossly intact Psychiatric exam: ABSENT: homicidal ideation, suicidal ideation Skin exam: PRESENT: dry, warm Results Laboratory Results: 04/05/18 05:06 04/05/18 05:06 04/04/18 04/05/18 04/05/18 23:05 05:06 10:00 Troponin I < 0.012 < 0.012 < 0.012 Impressions: Head CT 04/04/18 17:54 IMPRESSION: NORMAL BRAIN CT WITHOUT CONTRAST. EVIDENCE OF ACUTE STROKE: NO. Qualifiers - * PATIENT BEING DISCHARGED WITH ANY OF THE FOLLOWING DIAGNOSIS: No Plan Time Spent: Less than 30 Minutes
[2018-04-06 12:09] VITALS: BP 104/56
== END 2018-04-06 12:00 | disposition home or self-care (01) ==
LOC: ER 16:19 → EH 19:27 → INTOOBSV 19:27 → 4S 22:40
PROVIDERS: ADMIT Internal Medicine; ATTEND Internal Medicine
PROC: HZ31ZZZ Individual Counseling for Substance Abuse Treatment, Behavioral (ICD-10-PCS; principal; 2018-04-05)
DX: R55 Syncope and collapse (principal); R56.9 Unspecified convulsions; I95.89 Other hypotension; J44.9 Chronic obstructive pulmonary disease, unspecified; E22.1 Hyperprolactinemia; F32.9 Major depressive disorder, single episode, unspecified; I25.10 Atherosclerotic heart disease of native coronary artery without angina pectoris; R32 Unspecified urinary incontinence; R19.7 Diarrhea, unspecified; I73.9 Peripheral vascular disease, unspecified; R51 Headache; R60.0 Localized edema; R11.2 Nausea with vomiting, unspecified; M54.9 Dorsalgia, unspecified; I71.4 Abdominal aortic aneurysm, without rupture; F41.9 Anxiety disorder, unspecified; F17.210 Nicotine dependence, cigarettes, uncomplicated; M51.36 Other intervertebral disc degeneration, lumbar region; G89.29 Other chronic pain; M54.2 Cervicalgia; R00.1 Bradycardia, unspecified; R10.13 Epigastric pain; E78.5 Hyperlipidemia, unspecified; I10 Essential (primary) hypertension; Z79.02 Long term (current) use of antithrombotics/antiplatelets; I25.2 Old myocardial infarction; Z79.82 Long term (current) use of aspirin; Z79.899 Other long term (current) drug therapy; Z95.5 Presence of coronary angioplasty implant and graft; Z87.828 Personal history of other (healed) physical injury and trauma; Z90.49 Acquired absence of other specified parts of digestive tract; Z95.828 Presence of other vascular implants and grafts; Z82.49 Family history of ischemic heart disease and other diseases of the circulatory system
CPT/HCPCS: 95819 ×2; 93005; 99285; 36415 ×2; 82553; 80307 ×2; 82550; 83735; 85025 ×2; 80048; 80053; 81001; 84484 ×2; 84146; 70450; 93010; 99406; G0378 ×4; J3490 ×3; J1650 ×2; J7030

== ENCOUNTER → 2018-06-13 | Outpatient (CLI) | payer OTHER, MEDICARE, MEDICAID ==
--- NOTE | 2018-06-13 14:09 | RADIOLOGY REPORT (SQ) ---
EXAM DESCRIPTION: CHEST PA/LATERAL COMPLETED DATE/TIME: 06/13/2018 1:23 pm REASON FOR STUDY: COUGH R05 COMPARISON: Two-view chest 06/18/2014 AP chest 05/15/2016 EXAM PARAMETERS: NUMBER OF VIEWS: two views TECHNIQUE: Digital Frontal and Lateral radiographic views of the chest acquired. RADIATION DOSE: NA LIMITATIONS: none FINDINGS: LUNGS AND PLEURA: No opacities, masses or pneumothorax. No pleural effusion. MEDIASTINUM AND HILAR STRUCTURES: No masses or contour abnormalities. HEART AND VASCULAR STRUCTURES: Heart normal size. No evidence for failure. Faintly radiopaque right coronary artery stent BONES: No acute findings. HARDWARE: None in the chest. OTHER: No other significant finding. IMPRESSION: NO SIGNIFICANT RADIOGRAPHIC FINDING IN THE CHEST. TECHNICAL DOCUMENTATION: JOB ID: [id number] [employer]- All Rights Reserved Reading location - IP/workstation name: [email or web address]
== END ==
LOC: OD 13:10
PROVIDERS: ATTEND Nurse Practitioner Family
DX: R05 Cough (principal)
CPT/HCPCS: 71046

== ENCOUNTER 2019-10-13 18:28 | Inpatient (IN) | payer OTHER, MEDICARE ==
[2019-10-13] MEDS ORDERED: VANCOMYCIN HCL INJ 1000 MG VIAL IV ONE (18:59)
[2019-10-13] MEDS ORDERED: CEFEPIME INJ 1 GM VIAL IM ONE (18:59)
[2019-10-13] MEDS ORDERED: ONDANSETRON HCL INJ/PF 4 MG/2 ML SDV IV ONE (19:01)
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
[2019-10-13] MEDS ORDERED: RINGERS LACTATED IV ONE (19:33)
[2019-10-13 19:35] LABS: ABSOLUTE BASOPHILS # (AUTO) 0.1 10^3/uL (0.0-0.2); ABSOLUTE LYMPHOCYTES (AUTO) 1.1 10^3/uL (0.5-4.7); ABSOLUTE MONOCYTES (AUTO) 0.6 10^3/uL (0.1-1.4); ABSOLUTE NEUT (AUTO) 15.9 10^3/uL (1.7-8.2); BASOPHILS % (AUTO) 0.5 % (0-2); HEMOGLOBIN 18.8 g/dL (13.5-17.0); LYMPHOCYTES % (AUTO) 6.2 % (13-45); MEAN CORPUSCULAR HEMOGLOBIN 31.5 pg (27.0-33.4); MEAN CORPUSCULAR VOLUME 93 fl (80-97); MONOCYTES % (AUTO) 3.5 % (3-13); PLATELET COUNT 169 10^3/uL (150-450); RED BLOOD COUNT 5.97 10^6/uL (4.35-5.55); RED CELL DISTRIBUTION WIDTH 14.9 % (11.5-14.0); SEGMENTED NEUTROPHILS % (AUTO) 89.8 % (42-78); TOTAL CELLS COUNTED % (AUTO) 100 %; WHITE BLOOD COUNT 17.8 10^3/uL (4.0-10.5)
[2019-10-13 19:39] LABS: HEMATOCRIT 55.3 % (37.9-51.0)
[2019-10-13 19:53] LABS: INTERNATIONAL RATION (INR) 0.94; PROTHROMBIN TIME 12.6 SEC (11.4-15.4)
[2019-10-13 19:54] LABS: ALBUMIN 4.5 g/dL (3.5-5.0); ALKALINE PHOSPHATASE 129 U/L (38-126); ANION GAP 10 (5-19); ASPARTATE AMINO TRANSFERASE 24 U/L (17-59); BILIRUBIN,DIRECT 0.1 mg/dL (0.0-0.4); BILIRUBIN,TOTAL 1.1 mg/dL (0.2-1.3); BLOOD UREA NITROGEN 19 mg/dL (7-20); CALCIUM 10.1 mg/dL (8.4-10.2); CARBON DIOXIDE 25 mmol/L (22-30); CHLORIDE 98 mmol/L (98-107); GLUCOSE 141 mg/dL (75-110); POTASSIUM 5.2 mmol/L (3.6-5.0); TOTAL PROTEIN 8.2 g/dL (6.3-8.2)
--- NOTE | 2019-10-13 19:58 | RADIOLOGY REPORT (SQ) ---
EXAM DESCRIPTION: CHEST SINGLE VIEW IMAGES COMPLETED DATE/TIME: 10/13/2019 7:37 pm REASON FOR STUDY: cough COMPARISON: 06/13/2018 EXAM PARAMETERS: NUMBER OF VIEWS: One view. TECHNIQUE: Single frontal radiographic view of the chest acquired. RADIATION DOSE: NA LIMITATIONS: None. FINDINGS: LUNGS AND PLEURA: There is slight haziness in the left base. The left hemidiaphragm remai ns well-defined. MEDIASTINUM AND HILAR STRUCTURES: No masses. Contour normal. HEART AND VASCULAR STRUCTURES: Heart normal in size. Normal vasculature. BONES: No acute findings. HARDWARE: None in the chest. OTHER: No other significant finding. IMPRESSION: Cannot exclude a limited left lower lobe pneumonia. TECHNICAL DOCUMENTATION: JOB ID: [id number] 2010 [employer]- All Rights Reserved Reading location - IP/workstation name: [email or web address]
--- NOTE | 2019-10-13 20:04 | EKG REPORT ---
SEVERITY:- ABNORMAL ECG - SINUS TACHYCARDIA WITH PAC IVCD, CONSIDER ATYPICAL LBBB : Confirmed by: Shakir Joy MD 13-Oct-2019 20:03:31
[2019-10-13 21:08] LABS: VENOUS BLOOD BASE EXCESS 0.3 mmol/L; VENOUS BLOOD HCO3 26.3 mmol/L (20-32); VENOUS BLOOD PCO2 46.5 mmHg (35-63); VENOUS BLOOD PH 7.37 (7.30-7.42)
[2019-10-13] MEDS ORDERED: IPRATROPIUM/ALBUTEROL 0.5-2.5 MG/3 ML AMPUL NEB PRN (22:43)
[2019-10-13] MEDS ORDERED: ACETAMINOPHEN 325 MG TABLET PO PRN (22:43)
[2019-10-13] MEDS ORDERED: VANCOMYCIN HCL 0 MG in DEXTROSE 5%-WATER 250 ML IV NR (22:45)
[2019-10-13] MEDS ORDERED: ASCORBIC ACID 500 MG TABLET PO SCH (23:30)
[2019-10-13] MEDS ORDERED: ZINC SULFATE 220 MG CAPSULE PO SCH (23:30)
[2019-10-14 00:18] LABS: APPEARANCE,URINE SLIGHTLY-CLOUDY; BILIRUBIN,URINE NEGATIVE (NEGATIVE); COLOR,URINE AMBER; GLUCOSE, URINE NEGATIVE (NEGATIVE); KETONES,URINE TRACE mg/dL (NEGATIVE); LEUKOCYTE ESTERASE,URINE NEGATIVE (NEGATIVE); NITRITE,URINE NEGATIVE (NEGATIVE); PROTEIN,URINE 100 mg/dL (NEGATIVE); URINE SPECIFIC GRAVITY 1.029; UROBILINOGEN,URINE NEGATIVE mg/dL (<2.0)
[2019-10-14] MEDS: IPRATROPIUM/ALBUTEROL 0.5-2.5 MG/3 ML AMPUL NEB SCH ×3 (01:06→16:11)
--- NOTE | 2019-10-14 04:16 | PDOC H&P ---
History of Present Illness Admission Date/PCP: 10/13/19 22:50 KEAGAN ABREU Patient complains of: Nausea vomiting diarrhea History of Present Illness: LILLY VEGA is a 69 year old male with a past medical history of coronary artery disease with 5 stents, peripheral vascular disease with 3 distal stents, COPD, seizure, depression, anxiety and morbid obesity. He presents with 24 hours of abdominal pain nausea vomiting and diarrhea of gastric content without blood prompting evaluation emergency department where he is found to have fever, tachypnea, hypoxia, leukocytosis, hyponatremia, hyperkalemia and acute renal failure. Chest x-ray reveals a right lower lobe infiltrate. He is started on vancomycin and cefepime then referred to the hospitalist for admission. He denies known infectious or COVID contacts. He denies recent antibiotic use. Past Medical History Cardiac Medical History: Reports: Coronary Artery Disease, Myocardial Infarction - X3. 5 stents have been placed overall., Hyperlipidema, Hypertension, Peripheral Vascular Disease - 3 stents in distal arteries including groin. Denies: Atrial Fibrillation, Congestive Heart Failure, Pulmonary Embolism, Heart Murmur Pulmonary Medical History: Reports: Chronic Obstructive Pulmonary Disease (COPD) Denies: Asthma, Bronchitis, Pneumonia, Respiratory Failure, Sleep Apnea, Tuberculosis Neurological Medical History: Reports: Migraine, Seizures Endocrine Medical History: Denies: Diabetes Mellitus Type 2, Hyperthyroidism, Hypothyroidism Renal/ Medical History: Denies: End Stage Renal Disease Malignancy Medical History: Denies: Breast Cancer, Cervical Cancer, Leukemia, Lung Cancer, Ovarian Cancer GI Medical History: Reports: Diverticulitis, Gastroesophageal Reflux Disease, Hiatal Hernia Denies: Crohn's Disease Musculoskeltal Medical History: Reports: Arthritis Denies: Fibromyalgia Psychiatric Medical History: Reports: Depression, Tobacco Dependency Hematology: Denies: Anemia, Hemophilia, Sickle Cell Disease Infectious Medical History: Denies: HIV Past Surgical History Past Surgical History: Reports: Appendectomy, Cardiac Catheterization - 8 stents placed, Carotid Endarterectomy, Coronary Stent - X 5, leg stents x3, Tonsillecto my, Vascular Surgery - LEFT ILIAC ARTERY STENT, Other - Partial colectomy for diverticulitis 4 years ago. Had temporary colostomy Denies: Cholecystectomy, Colostomy, Coronary Artery Bypass Graft, Gastric Bypass Surgery, Herniorrhaphy, Pacemaker Social History Information Source: Patient, [facility] Records Lives with: Family Smoking Status: Former Smoker Electronic Cigarette use?: No Frequency of Alcohol Use: Rare Hx Recreational Drug Use: No Drugs: Marijuana Hx Prescription Drug Abuse: No - Advance Directive Resuscitation Status: Full Code Family History Family History: CAD, Hyperlipidemia, Malignancy Parental Family History Reviewed: Yes Children Family History Reviewed: Yes Sibling(s) Family History Reviewed.: Yes Medication/Allergy Home Medications: Albuterol Sulfate [Proair HFA Inhalation Aerosol 8.5 gm MDI] 1 puff IH Q6HP PRN 04/04/18 Aspirin [Ecotrin 81 mg EC Tablet] 81 mg PO DAILY 04/04/18 Atorvastatin Calcium [Lipitor 40 mg Tablet] 40 mg PO QHS 04/04/18 Citalopram Hydrobromide [Celexa 20 mg Tablet] 20 mg PO DAILY 04/04/18 Clopidogrel Bisulfate [Plavix 75 mg Tablet] 75 mg PO DAILY 04/04/18 Ipratropium/Albuterol Sulfate [Combivent Respimat 4 gm Mdi] 1 puff IH Q6 04/04/18 Metoprolol Tartrate [Lopressor 25 mg Tablet] 25 mg PO Q12 04/04/18 Nitroglycerin [Nitrostat 0.4 mg (1/150 Gr) Tabs 25/Bottle] 1 tab SL Q5MP PRN 04/04/18 [place]-3 Acid Ethyl Esters [Lovaza 1 gm Capsule] 1 gm PO DAILY 04/04/18 Omeprazole 40 mg PO DAILY 04/04/18 Oxycodone HCl [Oxy-Ir 5 mg Tablet] 5 mg PO Q6HP PRN 04/04/18 Budesonide/Formoterol Fumarate [Symbicort HFA 80-4.5 mcg Inhaler 6.9 gm] 2 puff IH Q12 04/05/18 Isosorbide Mononitrate [Imdur 30 mg Tablet.er] 30 mg PO DAILY 04/05/18 Pregabalin [Lyrica 75 mg Capsule] 75 mg PO Q12 04/05/18 Ranolazine [Ranexa 500 mg Tab.sr] 500 mg PO Q12 04/05/18 Acetaminophen [Tylenol 325 mg Tablet] 650 mg PO Q4HP PRN tablet 04/06/18 Aspirin [Aspirin 81 mg Chewable Tablet] 81 mg PO DAILY tab.chew 04/06/18 Budesonide/Formoterol Fumarate [Symbicort HFA 160-4.5 mcg Inhaler 6 gm] 2 puff IH Q12 inhaler 04/06/18 Citalopram Hydrobromide [Celexa 20 mg Tablet] 40 mg PO DAILY tablet 04/06/18 Clopidogrel Bisulfate [Plavix 75 mg Tablet] 75 mg PO DAILY tablet 04/06/18 Isosorbide Mononitrate [Imdur 30 mg Tablet.er] 30 mg PO DAILY tab.er.24h 04/06/18 Levetiracetam [Keppra 500 mg Tablet] 500 mg PO DAILY #30 tablet 04/06/18 Lorazepam [Ativan Inj 2 mg/1 ml Vial] 1 mg IV Q2HP PRN vial 04/06/18 Metoprolol Tartrate [Lopressor 25 mg Tablet] 25 mg PO Q12 tablet 04/06/18 Nitroglycerin [Nitrostat 0.4 mg (1/150 Gr) Tabs 25/Bottle] 1 tab SL Q5MP PRN bottle 04/06/18 Pregabalin [Lyrica 75 mg Capsule] 75 mg PO Q12 capsule 04/06/18 Allergies/Adverse Reactions: No Known Allergies Allergy (Verified 10/13/19 19:04) Review of Systems Constitutional: PRESENT: as per HPI, anorexia, fatigue, fever(s), weakness, weight gain Eyes: ABSENT: visual disturbances Ears: ABSENT: hearing changes Cardiovascular: ABSENT: chest pain, dyspnea on exertion, edema, orthropnea, palpitations Respiratory: PRESENT: as per HPI, dyspnea. ABSENT: cough, sputum Gastrointestinal: PRESENT: as per HPI, abdominal pain, bloating, constipation, diarrhea, heartburn, nausea, vomiting. ABSENT: hematemesis, hematochezia Genitourinary: ABSENT: dysuria, hematuria Musculoskeletal: ABSENT: joint swelling Integumentary: ABSENT: rash, wounds Neurological: ABSENT: abnormal gait, abnormal speech, confusion, dizziness, focal weakness, syncope Psychiatric: ABSENT: anxiety, depression, homidical ideation, suicidal ideation Endocrine: ABSENT: cold intolerance, heat intolerance, polydipsia, polyuria Hematologic/Lymphatic: ABSENT: easy bleeding, easy bruising Physical Exam Vital Signs: Temp Pulse Resp BP Pulse Ox 98.9 F 23 H 126/83 H 96 10/14/19 03:12 10/14/19 03:16 10/14/19 03:16 10/14/19 03:16 Intake & Output 10/12/19 10/13/19 10/14/19 11:59 11:59 11:59 Intake Total 3470 Balance 3470 Weight 115.666 kg General appearance: PRESENT: cooperative, disheveled, morbidly obese, severe distress, well-developed, well-nourished Head exam: PRESENT: atraumatic, normocephalic Eye exam: PRESENT: conjunctiva pink, EOMI, PERRLA. ABSENT: scleral icterus Ear exam: PRESENT: normal external ear exam Mouth exam: PRESENT: moist, tongue midline Neck exam: ABSENT: carotid bruit, JVD, lymphadenopathy, thyromegaly Respiratory exam: PRESENT: accessory muscle use, crackles, decreased breath sounds, prolonged expiratory phas, retraction, tachypnea. ABSENT: symmetrical Cardiovascular exam: PRESENT: RRR. ABSENT: diastolic murmur, rubs, systolic murmur Pulses: PRESENT: normal dorsalis pedis pul Vascular exam: PRESENT: normal capillary refill GI/Abdominal exam: PRESENT: hyperactive bowel sounds, soft, tenderness. ABSENT: rebound Rectal exam: PRESENT: deferred Extremities exam: PRESENT: full ROM. ABSENT: calf tenderness, clubbing, pedal edema Neurological exam: PRESENT: alert, awake, oriented to person, oriented to place, oriented to time, oriented to situation, CN II-XII grossly intact. ABSENT: motor sensory deficit Psychiatric exam: PRESENT: appropriate affect, normal mood. ABSENT: homicidal ideation, suicidal ideation Skin exam: PRESENT: dry, intact, warm. ABSENT: cyanosis, rash Results Laboratory Results: 10/13/19 19:13 10/13/19 19:13 10/13/19 10/13/19 10/13/19 19:13 19:13 19:13 WBC 17.8 H RBC 5.97 H Hgb 18.8 H Hct 55.3 H MCV 93 MCH 31.5 MCHC 34.0 RDW 14.9 H Plt Count 169 Seg Neutrophils % 89.8 H VBG pH Cancelled VBG pCO2 Cancelled VBG HCO3 Cancelled VBG Base Excess Cancelled Sodium 133.1 L Potassium 5.2 H Chloride 98 Carbon Dioxide 25 Anion Gap 10 BUN 19 Creatinine 1.44 H Est GFR ( Amer) 59 L Glucose 141 H Lactic Acid Calcium 10.1 Total Bilirubin 1.1 AST 24 Alkaline Phosphatase 129 H Total Protein 8.2 Albumin 4.5 Urine Color Urine Appearance Urine pH Ur Specific [place] Urine Protein Urine Glucose (UA) Urine Ketones Urine Blood Urine Nitrite Ur Leukocyte Esterase Urine WBC (Auto) Urine RBC (Auto) 10/13/19 10/13/19 10/13/19 19:13 20:00 23:04 WBC RBC Hgb Hct MCV MCH MCHC RDW Plt Count Seg Neutrophils % VBG pH 7.37 VBG pCO2 46.5 VBG HCO3 26.3 VBG Base Excess 0.3 Sodium Potassium Chloride Carbon Dioxide Anion Gap BUN Creatinine Est GFR ( Amer) Glucose Lactic Acid 2.4 H < 0.5 L Calcium Total Bilirubin AST Alkaline Phosphatase Total Protein Albumin Urine Color Urine Appearance Urine pH Ur Specific [place] Urine Protein Urine Glucose (UA) Urine Ketones Urine Blood Urine Nitrite Ur Leukocyte Esterase Urine WBC (Auto) Urine RBC (Auto) 10/13/19 10/14/19 23:34 02:46 WBC RBC Hgb Hct MCV MCH MCHC RDW Plt Count Seg Neutrophils % VBG pH VBG pCO2 VBG HCO3 VBG Base Excess Sodium Potassium Chloride Carbon Dioxide Anion Gap BUN Creatinine Est GFR ( Amer) Glucose Lactic Acid 1.5 Calcium Total Bilirubin AST Alkaline Phosphatase Total Protein Albumin Urine Color ZULMA Urine Appearance SLIGHTLY-CLOUDY Urine pH 5.0 Ur Specific [place] 1.029 Urine Protein 100 H Urine Glucose (UA) NEGATIVE Urine Ketones TRACE H Urine Blood MODERATE H Urine Nitrite NEGATIVE Ur Leukocyte Esterase NEGATIVE Urine WBC (Auto) 4 Urine RBC (Auto) 7 10/13/19 19:13 Troponin I < 0.012 Impressions: Chest X-Ray 10/13/19 18:58 IMPRESSION: Cannot exclude a limited left lower lobe pneumonia. Assessment and Plan - Diagnosis (1) Pneumonia Is this a current diagnosis for this admission?: Yes Plan: Pneumonia care set, vancomycin, cefepime initiated, albuterol and Atrovent, follow-up CBC, blood culture and cover testing (2) Hyperkalemia Is this a current diagnosis for this admission?: Yes Plan: No peak T waves, suspect underlying constipation, lactulose trial. Follow-up chemistry (3) Acute renal failure Is this a current diagnosis for this admission?: Yes Plan: Unclear cause, IV fluid challenge, avoid nephrotoxic meds and doses follow-up chemistry (4) COPD (chronic obstructive pulmonary disease) Qualifiers: COPD type: unspecified COPD Qualified Code(s): J44.9 - Chronic obstructive pulmonary disease, unspecified Is this a current diagnosis for this admission?: Yes Plan: Albuterol, Atrovent, incentive spirometry and flutter valve. - Time Time Spent with patient: 25-34 minutes - Inpatient Certification Medical Necessity: Significant Comorbidiites Make Outpatient Treatment Too Risky, Need Close Monitoring Due to Risk of Patient Decompensation
[2019-10-14] MEDS: NORMAL SALINE 1000 ML 1,000 ML IV PRN ×2 (04:45→09:27)
[2019-10-14] MEDS: HEPARIN SOD (PORCINE) 5,000 UNIT/ML 1 ML VIAL SUBCUT SCH ×3 (05:27→21:47)
[2019-10-14] MEDS ORDERED: CEFEPIME 1 GM/D5W RTU 0 GM/0 ML RTUPB IV ONE (05:28)
[2019-10-14] MEDS ORDERED: CEFEPIME 2 GM/D5W RTU 2 GM/50 ML RTUPB IV ONE (05:37)
[2019-10-14] MEDS ORDERED: CEFEPIME 2 GM/D5W RTU 2 GM/50 ML RTUPB IV SCH (06:00)
[2019-10-14 08:45] LABS: ABSOLUTE BASOPHILS # (AUTO) 0.1 10^3/uL (0.0-0.2); ABSOLUTE MONOCYTES (AUTO) 0.6 10^3/uL (0.1-1.4); ABSOLUTE NEUT (AUTO) 13.1 10^3/uL (1.7-8.2); BASOPHILS % (AUTO) 0.5 % (0-2); HEMATOCRIT 53.4 % (37.9-51.0); HEMOGLOBIN 18.2 g/dL (13.5-17.0); LYMPHOCYTES % (AUTO) 6.9 % (13-45); MEAN CORPUSCULAR HEMOGLOBIN 31.9 pg (27.0-33.4); MEAN CORPUSCULAR HGB CONC 34.2 g/dL (32.0-36.0); MEAN CORPUSCULAR VOLUME 93 fl (80-97); MONOCYTES % (AUTO) 3.8 % (3-13); PLATELET COUNT 153 10^3/uL (150-450); RED BLOOD COUNT 5.72 10^6/uL (4.35-5.55); RED CELL DISTRIBUTION WIDTH 14.6 % (11.5-14.0); SEGMENTED NEUTROPHILS % (AUTO) 88.8 % (42-78); TOTAL CELLS COUNTED % (AUTO) 100 %; WHITE BLOOD COUNT 14.7 10^3/uL (4.0-10.5)
[2019-10-14] MEDS: ZINC SULFATE 220 MG CAPSULE PO SCH (09:02)
[2019-10-14] MEDS: ASCORBIC ACID 500 MG TABLET PO SCH ×2 (09:02→17:14)
[2019-10-14 09:11] LABS: ALBUMIN 3.9 g/dL (3.5-5.0); ALKALINE PHOSPHATASE 95 U/L (38-126); ANION GAP 10 (5-19); ASPARTATE AMINO TRANSFERASE 26 U/L (17-59); BILIRUBIN,DIRECT 0.2 mg/dL (0.0-0.4); BILIRUBIN,TOTAL 0.9 mg/dL (0.2-1.3); BLOOD UREA NITROGEN 25 mg/dL (7-20); CALCIUM 9.3 mg/dL (8.4-10.2); CARBON DIOXIDE 23 mmol/L (22-30); CHLORIDE 100 mmol/L (98-107); GLUCOSE 132 mg/dL (75-110); TOTAL PROTEIN 7.2 g/dL (6.3-8.2)
[2019-10-14] MEDS: VANCOMYCIN HCL 1,000 MG in DEXTROSE 5%-WATER 250 ML IV SCH ×2 (09:26→21:47)
[2019-10-14 09:35] LABS: POTASSIUM 4.3 mmol/L (3.6-5.0)
[2019-10-14 10:04] LABS: C DIFFICILE GDH NEGATIVE (NEGATIVE)
--- NOTE | 2019-10-14 12:12 | PDOC PROGRESS REPORT ---
Subjective Progress Note for:: 10/14/19 Subjective:: 69 year old male with a past medical history of coronary artery disease with 5 stents, peripheral vascular disease with 3 distal stents, COPD, seizure, depression, anxiety and morbid obesity. He presents with 24 hours of abdominal pain nausea vomiting and diarrhea of gastric content without blood prompting evaluation emergency department where he is found to have fever, tachypnea, hypoxia, leukocytosis, hyponatremia, hyperkalemia and acute renal failure. Chest x-ray reveals a right lower lobe infiltrate. He is started on vancomycin and cefepime then referred to the hospitalist for admission. He denies known infectious or COVID contacts. He denies recent antibiotic use. 10/14/2019-C. difficile came back negative. Chest x-ray suggestive of right lower lobe pneumonia. Receiving vancomycin and cephapirin. Plan is to put him on Lomotil at this time. To repeat the labs tomorrow. Reason For Visit: SEPSIS ARF PNEUMONIA Physical Exam Vital Signs: Temp Pulse Resp BP Pulse Ox 99.9 F 95 16 116/58 L 98 10/14/19 11:20 10/14/19 11:20 10/14/19 11:20 10/14/19 11:20 10/14/19 11:20 Intake & Output 10/13/19 10/14/19 10/15/19 06:59 06:59 06:59 Intake Total 3520 1240 Balance 3520 1240 Weight 117 kg General appearance: PRESENT: no acute distress, obese Head exam: PRESENT: atraumatic Eye exam: PRESENT: PERRLA Ear exam: PRESENT: normal external ear exam Mouth exam: PRESENT: neck supple Teeth exam: PRESENT: poor dentation Neck exam: ABSENT: carotid bruit, JVD, lymphadenopathy, thyromegaly Respiratory exam: PRESENT: decreased breath sounds Cardiovascular exam: PRESENT: RRR. ABSENT: diastolic murmur, rubs, systolic murmur GI/Abdominal exam: PRESENT: normal bowel sounds, soft. ABSENT: distended, guarding, mass, organolmegaly, rebound, tenderness Rectal exam: PRESENT: deferred Neurological exam: PRESENT: alert, awake, oriented to person, oriented to place, oriented to time, oriented to situation, CN II-XII grossly intact. ABSENT: motor sensory deficit Psychiatric exam: PRESENT: appropriate affect, normal mood. ABSENT: homicidal ideation, suicidal ideation Results Laboratory Results: 10/14/19 07:45 10/14/19 07:45 10/13/19 10/13/19 10/13/19 19:13 19:13 19:13 WBC 17.8 H RBC 5.97 H Hgb 18.8 H Hct 55.3 H MCV 93 MCH 31.5 MCHC 34.0 RDW 14.9 H Plt Count 169 Seg Neutrophils % 89.8 H VBG pH Cancelled VBG pCO2 Cancelled VBG HCO3 Cancelled VBG Base Excess Cancelled Sodium 133.1 L Potassium 5.2 H Chloride 98 Carbon Dioxide 25 Anion Gap 10 BUN 19 Creatinine 1.44 H Est GFR ( Amer) 59 L Glucose 141 H Lactic Acid Calcium 10.1 Magnesium Total Bilirubin 1.1 AST 24 Alkaline Phosphatase 129 H Total Protein 8.2 Albumin 4.5 Urine Color Urine Appearance Urine pH Ur Specific [place] Urine Protein Urine Glucose (UA) Urine Ketones Urine Blood Urine Nitrite Ur Leukocyte Esterase Urine WBC (Auto) Urine RBC (Auto) 10/13/19 10/13/19 10/13/19 19:13 20:00 23:04 WBC RBC Hgb Hct MCV MCH MCHC RDW Plt Count Seg Neutrophils % VBG pH 7.37 VBG pCO2 46.5 VBG HCO3 26.3 VBG Base Excess 0.3 Sodium Potassium Chloride Carbon Dioxide Anion Gap BUN Creatinine Est GFR ( Amer) Glucose Lactic Acid 2.4 H < 0.5 L Calcium Magnesium Total Bilirubin AST Alkaline Phosphatase Total Protein Albumin Urine Color Urine Appearance Urine pH Ur Specific [place] Urine Protein Urine Glucose (UA) Urine Ketones Urine Blood Urine Nitrite Ur Leukocyte Esterase Urine WBC (Auto) Urine RBC (Auto) 10/13/19 10/14/19 10/14/19 23:34 02:46 07:45 WBC 14.7 H RBC 5.72 H Hgb 18.2 H Hct 53.4 H MCV 93 MCH 31.9 MCHC 34.2 RDW 14.6 H Plt Count 153 Seg Neutrophils % 88.8 H VBG pH VBG pCO2 VBG HCO3 VBG Base Excess Sodium Potassium Chloride Carbon Dioxide Anion Gap BUN Creatinine Est GFR ( Amer) Glucose Lactic Acid 1.5 Calcium Magnesium Total Bilirubin AST Alkaline Phosphatase Total Protein Albumin Urine Color ZULMA Urine Appearance SLIGHTLY-CLOUDY Urine pH 5.0 Ur Specific [place] 1.029 Urine Protein 100 H Urine Glucose (UA) NEGATIVE Urine Ketones TRACE H Urine Blood MODERATE H Urine Nitrite NEGATIVE Ur Leukocyte Esterase NEGATIVE Urine WBC (Auto) 4 Urine RBC (Auto) 7 10/14/19 07:45 WBC RBC Hgb Hct MCV MCH MCHC RDW Plt Count Seg Neutrophils % VBG pH VBG pCO2 VBG HCO3 VBG Base Excess Sodium 132.6 L Potassium 4.3 Chloride 100 Carbon Dioxide 23 Anion Gap 10 BUN 25 H Creatinine 1.55 H Est GFR ( Amer) 54 L Glucose 132 H Lactic Acid Calcium 9.3 Magnesium 2.0 Total Bilirubin 0.9 AST 26 Alkaline Phosphatase 95 Total Protein 7.2 Albumin 3.9 Urine Color Urine Appearance Urine pH Ur Specific [place] Urine Protein Urine Glucose (UA) Urine Ketones Urine Blood Urine Nitrite Ur Leukocyte Esterase Urine WBC (Auto) Urine RBC (Auto) 10/13/19 19:13 Troponin I < 0.012 Impressions: Chest X-Ray 10/13/19 18:58 IMPRESSION: Cannot exclude a limited left lower lobe pneumonia. Assessment and Plan - Diagnosis (1) Pneumonia Is this a current diagnosis for this admission?: Yes Plan: Pneumonia care set, vancomycin, cefepime initiated, albuterol and Atrovent, follow-up CBC, blood culture and cover testing 10/14/2019-patient admitted for most likely community-acquired pneumonia. Blood cultures are pending. Cover test is pending. Presently on cefepime and vancomycin. Plan is to continue albuterol and Atrovent nebulizations. (2) Hyperkalemia Is this a current diagnosis for this admission?: Yes Plan: No peak T waves, suspect underlying constipation, lactulose trial. Follow-up chemistry 10/14/2019-serum potassium is 0.2. Plan is to repeat the labs tomorrow. EKG within normal limits. (3) Acute renal failure Is this a current diagnosis for this admission?: Yes Plan: Unclear cause, IV fluid challenge, avoid nephrotoxic meds and doses follow-up chemistry 10/14/2019-serum creatinine 1.55 today. Estimated GFR is 54. Plan is to continue IV fluids at this time. (4) COPD (chronic obstructive pulmonary disease) Qualifiers: COPD type: unspecified COPD Qualified Code(s): J44.9 - Chronic obstructive pulmonary disease, unspecified Is this a current diagnosis for this admission?: No Plan: Albuterol, Atrovent, incentive spirometry and flutter valve. (5) Obesity (BMI 30-39.9) Is this a current diagnosis for this admission?: No Plan: 10/14/2019-BMI is more than 39 diet exercise weight loss lifestyle modifications discussed with the patient.
[2019-10-14] MEDS: OXYCODONE HCL IR 5 MG TABLET PO PRN ×2 (12:23→18:21)
[2019-10-14] MEDS: DIPHENOXYLATE HCL/ATROP SULF 2.5-0.025 MG TABLET PO PRN ×2 (12:23→18:20)
[2019-10-14] MEDS: CEFEPIME HCL 2 GM in DEXTROSE 5%-WATER 50 ML IV SCH (18:18)
[2019-10-15] MEDS: IPRATROPIUM/ALBUTEROL 0.5-2.5 MG/3 ML AMPUL NEB SCH ×4 (00:12→23:57)
[2019-10-15] MEDS: CEFEPIME HCL 2 GM in DEXTROSE 5%-WATER 50 ML IV SCH (05:41)
[2019-10-15] MEDS: HEPARIN SOD (PORCINE) 5,000 UNIT/ML 1 ML VIAL SUBCUT SCH ×3 (05:42→21:31)
[2019-10-15] MEDS: METRONIDAZOLE 500 MG/NS RTU 500 MG/100 ML RTUPB IV SCH ×2 (05:43→12:10)
[2019-10-15] MEDS: NORMAL SALINE 1000 ML 1,000 ML IV PRN ×2 (05:48→13:17)
[2019-10-15] MEDS: OXYCODONE HCL IR 5 MG TABLET PO PRN ×3 (06:57→20:03)
[2019-10-15 07:02] LABS: ABSOLUTE LYMPHOCYTES (AUTO) 1.4 10^3/uL (0.5-4.7); ABSOLUTE MONOCYTES (AUTO) 0.8 10^3/uL (0.1-1.4); ABSOLUTE NEUT (AUTO) 9.2 10^3/uL (1.7-8.2); BASOPHILS % (AUTO) 0.4 % (0-2); HEMATOCRIT 53.9 % (37.9-51.0); HEMOGLOBIN 18.3 g/dL (13.5-17.0); LYMPHOCYTES % (AUTO) 12.2 % (13-45); MEAN CORPUSCULAR HEMOGLOBIN 31.7 pg (27.0-33.4); MEAN CORPUSCULAR HGB CONC 33.9 g/dL (32.0-36.0); MEAN CORPUSCULAR VOLUME 94 fl (80-97); MONOCYTES % (AUTO) 6.9 % (3-13); PLATELET COUNT 125 10^3/uL (150-450); RED BLOOD COUNT 5.77 10^6/uL (4.35-5.55); RED CELL DISTRIBUTION WIDTH 14.7 % (11.5-14.0); SEGMENTED NEUTROPHILS % (AUTO) 80.5 % (42-78); TOTAL CELLS COUNTED % (AUTO) 100 %; WHITE BLOOD COUNT 11.4 10^3/uL (4.0-10.5)
[2019-10-15 07:22] LABS: ALBUMIN 3.9 g/dL (3.5-5.0); ALKALINE PHOSPHATASE 91 U/L (38-126); ANION GAP 12 (5-19); ASPARTATE AMINO TRANSFERASE 36 U/L (17-59); BILIRUBIN,DIRECT 0.2 mg/dL (0.0-0.4); BILIRUBIN,TOTAL 0.8 mg/dL (0.2-1.3); BLOOD UREA NITROGEN 26 mg/dL (7-20); CALCIUM 9.1 mg/dL (8.4-10.2); CARBON DIOXIDE 20 mmol/L (22-30); CHLORIDE 98 mmol/L (98-107); GLUCOSE 130 mg/dL (75-110); TOTAL PROTEIN 7.6 g/dL (6.3-8.2)
[2019-10-15] MEDS: ZINC SULFATE 220 MG CAPSULE PO SCH (09:58)
[2019-10-15] MEDS: LIDOCAINE 5% (700 MG) TRANSDERMAL ADH..PATCH TP SCH (09:58)
[2019-10-15] MEDS: ASCORBIC ACID 500 MG TABLET PO SCH ×2 (09:58→17:23)
[2019-10-15] MEDS: PREGABALIN 75 MG CAPSULE PO SCH ×2 (09:58→21:30)
[2019-10-15] MEDS: CLOPIDOGREL BISULFATE 75 MG TABLET PO SCH (09:58)
[2019-10-15] MEDS: CITALOPRAM HYDROBROMIDE 20 MG TABLET PO SCH (09:58)
[2019-10-15] MEDS: METOPROLOL TARTRATE 25 MG TABLET PO SCH ×2 (09:58→21:32)
[2019-10-15] MEDS: ISOSORBIDE MONONITRATE 30 MG TAB.ER.24H PO SCH (09:58)
[2019-10-15] MEDS: VANCOMYCIN HCL 1,000 MG in DEXTROSE 5%-WATER 250 ML IV SCH (09:59)
[2019-10-15 10:36] LABS: VANCOMYCIN,TROUGH 10.3 ug/mL (5.0-20.0)
[2019-10-15] MEDS ORDERED: LOPERAMIDE HCL 2 MG CAPSULE PO PRN (12:56)
--- NOTE | 2019-10-15 13:01 | PDOC PROGRESS REPORT ---
Subjective Progress Note for:: 10/15/19 Subjective:: 69 year old male with a past medical history of coronary artery disease with 5 stents, peripheral vascular disease with 3 distal stents, COPD, seizure, depression, anxiety and morbid obesity. He presents with 24 hours of abdominal pain nausea vomiting and diarrhea of gastric content without blood prompting evaluation emergency department where he is found to have fever, tachypnea, hypoxia, leukocytosis, hyponatremia, hyperkalemia and acute renal failure. Chest x-ray reveals a right lower lobe infiltrate. He is started on vancomycin and cefepime then referred to the hospitalist for admission. He denies known infectious or COVID contacts. He denies recent antibiotic use. 10/14/2019-C. difficile came back negative. Chest x-ray suggestive of right lower lobe pneumonia. Receiving vancomycin and cephapirin. Plan is to put him on Lomotil at this time. To repeat the labs tomorrow. 10/15/19-patient C. difficile is negative still continues have loose stools. He is on Lomotil at this time. Blood cultures are positive for gram-positive cocci presently on Vanco, cefepime, Flagyl. Afebrile. White cell count is improved to 11,400. Pulse ox is 94% 2 L. Plan is to continue the present management at this time. COVID test is pending. Reason For Visit: SEPSIS ARF PNEUMONIA Physical Exam Vital Signs: Temp Pulse Resp BP Pulse Ox 97.7 F 90 20 126/87 H 96 10/15/19 11:08 10/15/19 11:08 10/15/19 11:08 10/15/19 11:08 10/15/19 11:08 Intake & Output 10/14/19 10/15/19 10/16/19 06:59 06:59 06:59 Intake Total 3520 3210 450 Output Total 1875 100 Balance 3520 1335 350 Weight 117 kg 117.4 kg General appearance: PRESENT: no acute distress, obese Head exam: PRESENT: atraumatic Eye exam: PRESENT: PERRLA Mouth exam: PRESENT: moist, tongue midline Teeth exam: PRESENT: poor dentation Neck exam: ABSENT: carotid bruit, JVD, lymphadenopathy, thyromegaly Respiratory exam: PRESENT: clear to auscultation [place]. ABSENT: rales, rhonchi, wheezes Cardiovascular exam: PRESENT: RRR. ABSENT: diastolic murmur, rubs, systolic murmur GI/Abdominal exam: PRESENT: normal bowel sounds, soft. ABSENT: distended, guarding, mass, organolmegaly, rebound, tenderness Rectal exam: PRESENT: deferred Extremities exam: PRESENT: full ROM. ABSENT: calf tenderness, clubbing, pedal edema Neurological exam: PRESENT: alert, awake, oriented to person, oriented to place, oriented to time, oriented to situation, CN II-XII grossly intact. ABSENT: motor sensory deficit Psychiatric exam: PRESENT: appropriate affect, normal mood. ABSENT: homicidal ideation, suicidal ideation Skin exam: PRESENT: dry, intact, warm. ABSENT: cyanosis, rash Results Laboratory Results: 10/15/19 06:20 10/15/19 06:20 10/15/19 10/15/19 06: 06:20 WBC 11.4 H RBC 5.77 H Hgb 18.3 H Hct 53.9 H MCV 94 MCH 31.7 MCHC 33.9 RDW 14.7 H Plt Count 125 L Seg Neutrophils % 80.5 H Sodium 129.8 L Potassium 4.0 Chloride 98 Carbon Dioxide 20 L Anion Gap 12 BUN 26 H Creatinine 1.49 H Est GFR ( Amer) 57 L Glucose 130 H Calcium 9.1 Magnesium 2.1 Total Bilirubin 0.8 AST 36 Alkaline Phosphatase 91 Total Protein 7.6 Albumin 3.9 10/13/19 19:13 Troponin I < 0.012 Impressions: Chest X-Ray 10/13/19 18:58 IMPRESSION: Cannot exclude a limited left lower lobe pneumonia. Assessment and Plan - Diagnosis (1) Pneumonia Is this a current diagnosis for this admission?: Yes Plan: Pneumonia care set, vancomycin, cefepime initiated, albuterol and Atrovent, follow-up CBC, blood culture and cover testing 10/14/2019-patient admitted for most likely community-acquired pneumonia. Blood cultures are pending. Covid test is pending. Presently on cefepime and vancomycin. Plan is to continue albuterol and Atrovent nebulizations. 10/15/2019-patient is getting IV cefepime, IV vancomycin, IV Flagyl. COVID test is pending. Patient is receiving scheduled and as needed nebulizations at this time. Blood cultures are positive for gram-positive cocci. (2) Hyperkalemia Is this a current diagnosis for this admission?: Yes Plan: No peak T waves, suspect underlying constipation, lactulose trial. Follow-up chemistry 10/14/2019-serum potassium is 5.2. Plan is to repeat the labs tomorrow. EKG within normal limits. 10/15/2019-serum potassium today is 4.0 hyperkalemia is resolved. (3) Acute renal failure Is this a current diagnosis for this admission?: Yes Plan: Unclear cause, IV fluid challenge, avoid nephrotoxic meds and doses follow-up chemistry 10/14/2019-serum creatinine 1.55 today. Estimated GFR is 54. Plan is to continue IV fluids at this time. 10/15/2019-serum creatinine today is 1.49. Improving. Patient is receiving IV fluids normal saline at 100 cc/h. (4) COPD (chronic obstructive pulmonary disease) Qualifiers: COPD type: unspecified COPD Qualified Code(s): J44.9 - Chronic obstructive pulmonary disease, unspecified Is this a current diagnosis for this admission?: No Plan: Albuterol, Atrovent, incentive spirometry and flutter valve. (5) Obesity (BMI 30-39.9) Is this a current diagnosis for this admission?: No Plan: 10/14/2019-BMI is more than 39 diet exercise weight loss lifestyle modifications discussed with the patient.
[2019-10-15] MEDS: DIPHENOXYLATE HCL/ATROP SULF 2.5-0.025 MG TABLET PO PRN (13:14)
[2019-10-15] MEDS ORDERED: ONDANSETRON HCL INJ/PF 4 MG/2 ML SDV IV PRN (17:07)
[2019-10-15] MEDS: VANCOMYCIN HCL 1,500 MG in DEXTROSE 5%-WATER 250 ML IV SCH (17:23)
[2019-10-15] MEDS ORDERED: METRONIDAZOLE 500 MG/NS RTU 500 MG/100 ML RTUPB IV SCH (20:00)
[2019-10-15] MEDS: ATORVASTATIN CALCIUM 40 MG TABLET PO SCH (21:30)
[2019-10-15] MEDS ORDERED: CIPROFLOXACIN HCL 500 MG TABLET PO SCH (22:00)
[2019-10-16] MEDS: NORMAL SALINE 1000 ML 1,000 ML IV PRN ×3 (04:21→18:02)
[2019-10-16] MEDS: HEPARIN SOD (PORCINE) 5,000 UNIT/ML 1 ML VIAL SUBCUT SCH ×3 (05:02→22:08)
[2019-10-16 05:36] LABS: ABSOLUTE LYMPHOCYTES (AUTO) 1.8 10^3/uL (0.5-4.7); ABSOLUTE NEUT (AUTO) 6.6 10^3/uL (1.7-8.2); BASOPHILS % (AUTO) 0.2 % (0-2); EOSINOPHILS % (AUTO) 0.2 % (0-6); HEMATOCRIT 49.8 % (37.9-51.0); HEMOGLOBIN 17.2 g/dL (13.5-17.0); LYMPHOCYTES % (AUTO) 18.9 % (13-45); MEAN CORPUSCULAR HEMOGLOBIN 32.2 pg (27.0-33.4); MEAN CORPUSCULAR HGB CONC 34.6 g/dL (32.0-36.0); MEAN CORPUSCULAR VOLUME 93 fl (80-97); MONOCYTES % (AUTO) 10.9 % (3-13); PLATELET COUNT 128 10^3/uL (150-450); RED BLOOD COUNT 5.35 10^6/uL (4.35-5.55); RED CELL DISTRIBUTION WIDTH 14.4 % (11.5-14.0); SEGMENTED NEUTROPHILS % (AUTO) 69.8 % (42-78); TOTAL CELLS COUNTED % (AUTO) 100 %; WHITE BLOOD COUNT 9.4 10^3/uL (4.0-10.5)
[2019-10-16] MEDS: VANCOMYCIN HCL 1,500 MG in DEXTROSE 5%-WATER 250 ML IV SCH ×2 (05:42→17:59)
[2019-10-16 05:55] LABS: ALBUMIN 3.7 g/dL (3.5-5.0); ALKALINE PHOSPHATASE 80 U/L (38-126); ANION GAP 10 (5-19); ASPARTATE AMINO TRANSFERASE 35 U/L (17-59); BILIRUBIN,DIRECT 0.2 mg/dL (0.0-0.4); BILIRUBIN,TOTAL 0.6 mg/dL (0.2-1.3); BLOOD UREA NITROGEN 39 mg/dL (7-20); CALCIUM 8.6 mg/dL (8.4-10.2); CARBON DIOXIDE 20 mmol/L (22-30); CHLORIDE 98 mmol/L (98-107); GLUCOSE 109 mg/dL (75-110); POTASSIUM 3.5 mmol/L (3.6-5.0); TOTAL PROTEIN 7.5 g/dL (6.3-8.2)
[2019-10-16] MEDS ORDERED: ACETAMINOPHEN 325 MG TABLET PO PRN (07:15)
[2019-10-16] MEDS: IPRATROPIUM/ALBUTEROL 0.5-2.5 MG/3 ML AMPUL NEB SCH (08:13)
--- NOTE | 2019-10-16 08:54 | PDOC PROGRESS REPORT ---
Subjective Progress Note for:: 10/16/19 Subjective:: 69 year old male with a past medical history of coronary artery disease with 5 stents, peripheral vascular disease with 3 distal stents, COPD, seizure, depression, anxiety and morbid obesity. He presents with 24 hours of abdominal pain nausea vomiting and diarrhea of gastric content without blood prompting evaluation emergency department where he is found to have fever, tachypnea, hypoxia, leukocytosis, hyponatremia, hyperkalemia and acute renal failure. Chest x-ray reveals a right lower lobe infiltrate. He is started on vancomycin and cefepime then referred to the hospitalist for admission. He denies known infectious or COVID contacts. He denies recent antibiotic use. 10/14/2019-C. difficile came back negative. Chest x-ray suggestive of right lower lobe pneumonia. Receiving vancomycin and cephapirin. Plan is to put him on Lomotil at this time. To repeat the labs tomorrow. 10/15/19-patient C. difficile is negative still continues have loose stools. He is on Lomotil at this time. Blood cultures are positive for gram-positive cocci presently on Vanco, cefepime, Flagyl. Afebrile. White cell count is improved to 11,400. Pulse ox is 94% 2 L. Plan is to continue the present management at this time. COVID test is pending. 10/16/2019-cover test came back negative. Stool culture is positive for Salmonella started on Cipro floxacillin. Creatinine went up to 2.32 urinary output is improved he is on IV fluids normal saline 100 cc/h. Plan is to increase the fluids to 150 cc/h. To repeat the labs tomorrow. Comfortably in the chair communicating well. Feeling better. Cultures are positive for gram- positive cocci on vancomycin. Vanco trough is around 10.3. Reason For Visit: SEPSIS ARF PNEUMONIA Physical Exam Vital Signs: Temp Pulse Resp BP Pulse Ox 97.5 F 76 20 103/59 L 92 10/16/19 03:29 10/16/19 07:00 10/16/19 03:29 10/16/19 03:29 10/16/19 03:29 Intake & Output 10/15/19 10/16/19 10/17/19 06:59 06:59 06:59 Intake Total 3210 2900 250 Output Total 1875 100 Balance 1335 2800 250 Weight 117.4 kg 116.5 kg General appearance: PRESENT: no acute distress, cooperative, morbidly obese Head exam: PRESENT: atraumatic Eye exam: PRESENT: PERRLA Mouth exam: PRESENT: moist, tongue midline Teeth exam: PRESENT: poor dentation Neck exam: ABSENT: carotid bruit, JVD, lymphadenopathy, thyromegaly Respiratory exam: PRESENT: decreased breath sounds Cardiovascular exam: PRESENT: RRR. ABSENT: diastolic murmur, rubs, systolic murmur GI/Abdominal exam: PRESENT: normal bowel sounds, soft. ABSENT: distended, guarding, mass, organolmegaly, rebound, tenderness Rectal exam: PRESENT: deferred Extremities exam: PRESENT: full ROM. ABSENT: calf tenderness, clubbing, pedal edema Neurological exam: PRESENT: alert, awake, oriented to person, oriented to place, oriented to time, oriented to situation, CN II-XII grossly intact. ABSENT: motor sensory deficit Psychiatric exam: PRESENT: appropriate affect, normal mood. ABSENT: homicidal ideation, suicidal ideation Results Laboratory Results: 10/16/19 04:47 10/16/19 04:47 10/16/19 10/16/19 04:47 04:47 WBC 9.4 RBC 5.35 Hgb 17.2 H Hct 49.8 MCV 93 MCH 32.2 MCHC 34.6 RDW 14.4 H Plt Count 128 L Seg Neutrophils % 69.8 Sodium 128.4 L Potassium 3.5 L Chloride 98 Carbon Dioxide 20 L Anion Gap 10 BUN 39 H Creatinine 2.32 H Est GFR ( Amer) 34 L Glucose 109 Calcium 8.6 Magnesium 2.4 H Total Bilirubin 0.6 AST 35 Alkaline Phosphatase 80 Total Protein 7.5 Albumin 3.7 10/13/19 19:13 Troponin I < 0.012 Impressions: Chest X-Ray 10/13/19 18:58 IMPRESSION: Cannot exclude a limited left lower lobe pneumonia. Assessment and Plan - Diagnosis (1) Pneumonia Is this a current diagnosis for this admission?: Yes Plan: Pneumonia care set, vancomycin, cefepime initiated, albuterol and Atrovent, follow-up CBC, blood culture and cover testing 10/14/2019-patient admitted for most likely community-acquired pneumonia. Blood cultures are pending. Covid test is pending. Presently on cefepime and vancomycin. Plan is to continue albuterol and Atrovent nebulizations. 10/15/2019-patient is getting IV cefepime, IV vancomycin, IV Flagyl. COVID test is pending. Patient is receiving scheduled and as needed nebulizations at this time. Blood cultures are positive for gram-positive cocci. 10/16/2019-WBC count is 9.4 within normal limits afebrile. Blood cultures are positive for gram-positive cocci waiting for the sensitivity report identification. Presently on IV vancomycin, trough is 10.3. Covid test is negative. Plan is to continue IV antibiotic therapy at this time. (2) Hyperkalemia Is this a current diagnosis for this admission?: Yes Plan: No peak T waves, suspect underlying constipation, lactulose trial. Follow-up ch emistry 10/14/2019-serum potassium is 5.2. Plan is to repeat the labs tomorrow. EKG within normal limits. 10/15/2019-serum potassium today is 4.0 hyperkalemia is resolved. 10/16/2019-serum potassium today is 3.5. Hyperkalemia is resolved. (3) Acute renal failure Is this a current diagnosis for this admission?: Yes Plan: Unclear cause, IV fluid challenge, avoid nephrotoxic meds and doses follow-up chemistry 10/14/2019-serum creatinine 1.55 today. Estimated GFR is 54. Plan is to continue IV fluids at this time. 10/15/2019-serum creatinine today is 1.49. Improving. Patient is receiving IV fluids normal saline at 100 cc/h. 10/16/19-serum creatinine jumped to 2.32 today. On IV fluids normal saline at 100 cc/h plan increase the fluids to 150 cc/h. (4) COPD (chronic obstructive pulmonary disease) Qualifiers: COPD type: unspecified COPD Qualified Code(s): J44.9 - Chronic obstructive pulmonary disease, unspecified Is this a current diagnosis for this admission?: No Plan: Albuterol, Atrovent, incentive spirometry and flutter valve. 10/16/2019-pulse ox today is 92% on 2 L. Comfortable in the chair communicating well. Not in distress. Chest bilateral entry was decreased no wheezing no crepitations. (5) Obesity (BMI 30-39.9) Is this a current diagnosis for this admission?: No Plan: 10/14/2019-BMI is more than 39 diet exercise weight loss lifestyle modifications discussed with the patient. (6) Salmonella enteritis Is this a current diagnosis for this admission?: Yes Plan: 10/16/2019-stool culture came back positive for Salmonella and Ciprofloxacillin 400 mg p.o. daily.
[2019-10-16] MEDS: OXYCODONE HCL IR 5 MG TABLET PO PRN ×2 (09:50→18:01)
[2019-10-16] MEDS: ISOSORBIDE MONONITRATE 30 MG TAB.ER.24H PO SCH (09:50)
[2019-10-16] MEDS: PREGABALIN 75 MG CAPSULE PO SCH ×2 (09:50→22:56)
[2019-10-16] MEDS: CIPROFLOXACIN HCL 500 MG TABLET PO SCH (09:50)
[2019-10-16] MEDS: FLUTICASONE/VILANTEROL 100-25 MCG/DOSE IH SCH (09:51)
[2019-10-16] MEDS: CLOPIDOGREL BISULFATE 75 MG TABLET PO SCH (09:51)
[2019-10-16] MEDS: LIDOCAINE 5% (700 MG) TRANSDERMAL ADH..PATCH TP SCH (09:51)
[2019-10-16] MEDS: METOPROLOL TARTRATE 25 MG TABLET PO SCH ×2 (09:51→22:56)
[2019-10-16] MEDS: CITALOPRAM HYDROBROMIDE 20 MG TABLET PO SCH (09:51)
[2019-10-16] MEDS: ASCORBIC ACID 500 MG TABLET PO SCH ×2 (09:51→17:59)
[2019-10-16] MEDS: ZINC SULFATE 220 MG CAPSULE PO SCH (09:51)
[2019-10-16] MEDS ORDERED: (PENDING PHARMACY ID) (Ipratropium/Albuterol Sulfate [Combivent Respimat 4 Gm Mdi] 1 PUFF) IH SCH (12:00)
[2019-10-16 17:54] LABS: VANCOMYCIN,TROUGH 33.2 ug/mL (5.0-20.0)
[2019-10-16] MEDS: ATORVASTATIN CALCIUM 40 MG TABLET PO SCH (22:56)
[2019-10-16] MEDS: PHARMACY COMMUNICATION ORDER MC SCH (22:57)
[2019-10-17] MEDS: OXYCODONE HCL IR 5 MG TABLET PO PRN ×2 (00:19→17:19)
[2019-10-17 06:03] LABS: ABSOLUTE EOSINOPHILS # (AUTO) 0.1 10^3/uL (0.0-0.6); ABSOLUTE NEUT (AUTO) 4.1 10^3/uL (1.7-8.2); BASOPHILS % (AUTO) 0.5 % (0-2); EOSINOPHILS % (AUTO) 0.8 % (0-6); HEMATOCRIT 46.3 % (37.9-51.0); HEMOGLOBIN 15.9 g/dL (13.5-17.0); LYMPHOCYTES % (AUTO) 27.6 % (13-45); MEAN CORPUSCULAR HEMOGLOBIN 31.7 pg (27.0-33.4); MEAN CORPUSCULAR HGB CONC 34.3 g/dL (32.0-36.0); MEAN CORPUSCULAR VOLUME 92 fl (80-97); MONOCYTES % (AUTO) 13.4 % (3-13); PLATELET COUNT 123 10^3/uL (150-450); RED BLOOD COUNT 5.01 10^6/uL (4.35-5.55); RED CELL DISTRIBUTION WIDTH 14.3 % (11.5-14.0); SEGMENTED NEUTROPHILS % (AUTO) 57.7 % (42-78); TOTAL CELLS COUNTED % (AUTO) 100 %; WHITE BLOOD COUNT 7.2 10^3/uL (4.0-10.5)
[2019-10-17] MEDS: HEPARIN SOD (PORCINE) 5,000 UNIT/ML 1 ML VIAL SUBCUT SCH ×4 (06:16→21:50)
[2019-10-17] MEDS: PANTOPRAZOLE SODIUM 40 MG TABLET.DR PO SCH (06:19)
[2019-10-17 06:37] LABS: ALBUMIN 3.1 g/dL (3.5-5.0); ALKALINE PHOSPHATASE 72 U/L (38-126); ANION GAP 10 (5-19); ASPARTATE AMINO TRANSFERASE 30 U/L (17-59); BILIRUBIN,DIRECT 0.1 mg/dL (0.0-0.4); BILIRUBIN,TOTAL 0.4 mg/dL (0.2-1.3); BLOOD UREA NITROGEN 42 mg/dL (7-20); CALCIUM 8.4 mg/dL (8.4-10.2); CARBON DIOXIDE 19 mmol/L (22-30); CHLORIDE 102 mmol/L (98-107); GLUCOSE 88 mg/dL (75-110); POTASSIUM 3.5 mmol/L (3.6-5.0); TOTAL PROTEIN 6.2 g/dL (6.3-8.2)
--- NOTE | 2019-10-17 09:05 | PDOC PROGRESS REPORT ---
Subjective Progress Note for:: 10/17/19 Subjective:: 69 year old male with a past medical history of coronary artery disease with 5 stents, peripheral vascular disease with 3 distal stents, COPD, seizure, depression, anxiety and morbid obesity. He presents with 24 hours of abdominal pain nausea vomiting and diarrhea of gastric content without blood prompting evaluation emergency department where he is found to have fever, tachypnea, hypoxia, leukocytosis, hyponatremia, hyperkalemia and acute renal failure. Chest x-ray reveals a right lower lobe infiltrate. He is started on vancomycin and cefepime then referred to the hospitalist for admission. He denies known infectious or COVID contacts. He denies recent antibiotic use. 10/14/2019-C. difficile came back negative. Chest x-ray suggestive of right lower lobe pneumonia. Receiving vancomycin and cephapirin. Plan is to put him on Lomotil at this time. To repeat the labs tomorrow. 10/15/19-patient C. difficile is negative still continues have loose stools. He is on Lomotil at this time. Blood cultures are positive for gram-positive cocci presently on Vanco, cefepime, Flagyl. Afebrile. White cell count is improved to 11,400. Pulse ox is 94% 2 L. Plan is to continue the present management at this time. COVID test is pending. 10/16/2019-cover test came back negative. Stool culture is positive for Salmonella started on Cipro floxacillin. Creatinine went up to 2.32 urinary output is improved he is on IV fluids normal saline 100 cc/h. Plan is to increase the fluids to 150 cc/h. To repeat the labs tomorrow. Comfortably in the chair communicating well. Feeling better. Cultures are positive for gram- positive cocci on vancomycin. Vanco trough is around 10.3. 10/17/19-Vanco trough is 33 yesterday vancomycin was discontinued. Serum creatinine went up to 2.62 renal ultrasound was requested. Patient is receiving normal saline 100 cc/h. No acute event the last 24 hours. Afebrile. Blood pressure stable. Reason For Visit: SEPSIS ARF PNEUMONIA Physical Exam Vital Signs: Temp Pulse Resp BP Pulse Ox 97.3 F 59 L 18 106/58 L 93 10/17/19 07:30 10/17/19 07:30 10/17/19 07:30 10/17/19 07:30 10/17/19 07:30 Intake & Output 10/16/19 10/17/19 10/18/19 06:59 06:59 06:59 Intake Total 2900 3322 Output Total 100 0 Balance 2800 3322 Weight 116.5 kg 118.6 kg General appearance: PRESENT: no acute distress, morbidly obese Head exam: PRESENT: atraumatic Eye exam: PRESENT: PERRLA Ear exam: PRESENT: normal external ear exam Mouth exam: PRESENT: neck supple Neck exam: ABSENT: carotid bruit, JVD, lymphadenopathy, thyromegaly Respiratory exam: PRESENT: decreased breath sounds Cardiovascular exam: PRESENT: RRR. ABSENT: diastolic murmur, rubs, systolic murmur Pulses: PRESENT: normal dorsalis pedis pul GI/Abdominal exam: PRESENT: normal bowel sounds, soft. ABSENT: distended, guarding, mass, organolmegaly, rebound, tenderness Rectal exam: PRESENT: deferred Extremities exam: PRESENT: full ROM. ABSENT: calf tenderness, clubbing, pedal edema Neurological exam: PRESENT: alert, awake, oriented to person, oriented to place, oriented to time, oriented to situation, CN II-XII grossly intact. ABSENT: motor sensory deficit Psychiatric exam: PRESENT: appropriate affect, normal mood. ABSENT: homicidal ideation, suicidal ideation Results Laboratory Results: 10/17/19 04:55 10/17/19 04:55 10/17/19 10/17/19 04:55 04:55 WBC 7.2 RBC 5.01 Hgb 15.9 Hct 46.3 MCV 92 MCH 31.7 MCHC 34.3 RDW 14.3 H Plt Count 123 L Seg Neutrophils % 57.7 Sodium 130.6 L Potassium 3.5 L Chloride 102 Carbon Dioxide 19 L Anion Gap 10 BUN 42 H Creatinine 2.68 H Est GFR ( Amer) 29 L Glucose 88 Calcium 8.4 Magnesium 2.4 H Total Bilirubin 0.4 AST 30 Alkaline Phosphatase 72 Total Protein 6.2 L Albumin 3.1 L 10/14/19 04:05 Stool - Stool - Final 10/14/19 04:05 Stool - Stool Stool Culture - Final Salmonella Species 10/13/19 19:13 Troponin I < 0.012 Impressions: Chest X-Ray 10/13/19 18:58 IMPRESSION: Cannot exclude a limited left lower lobe pneumonia. Assessment and Plan - Diagnosis (1) Pneumonia Is this a current diagnosis for this admission?: Yes Plan: Pneumonia care set, vancomycin, cefepime initiated, albuterol and Atrovent, follow-up CBC, blood culture and cover testing 10/14/2019-patient admitted for most likely community-acquired pneumonia. Blood cultures are pending. Covid test is pending. Presently on cefepime and vancomycin. Plan is to continue albuterol and Atrovent nebulizations. 10/15/2019-patient is getting IV cefepime, IV vancomycin, IV Flagyl. COVID test is pending. Patient is receiving scheduled and as needed nebulizations at this time. Blood cultures are positive for gram-positive cocci. 10/16/2019-WBC count is 9.4 within normal limits afebrile. Blood cultures are positive for gram-positive cocci waiting for the sensitivity report identification. Presently on IV vancomycin, trough is 10.3. Covid test is negative. Plan is to continue IV antibiotic therapy at this time. 10/17/2019-patient is afebrile pulse ox is 92% on room air WBC count is 7200. B lood cultures came back positive for Staphylococcus pansensitive. To start on IV Rocephin 1 g daily. Vancomycin trough is 33 and it was discontinued. (2) Hyperkalemia Is this a current diagnosis for this admission?: Yes Plan: No peak T waves, suspect underlying constipation, lactulose trial. Follow-up chemistry 10/14/2019-serum potassium is 5.2. Plan is to repeat the labs tomorrow. EKG within normal limits. 10/15/2019-serum potassium today is 4.0 hyperkalemia is resolved. 10/16/2019-serum potassium today is 3.5. Hyperkalemia is resolved. 10/17/2019-serum potassium today is 3.5 today. Hyperkalemia is resolved. (3) Acute renal failure Is this a current diagnosis for this admission?: Yes Plan: Unclear cause, IV fluid challenge, avoid nephrotoxic meds and doses follow-up chemistry 10/14/2019-serum creatinine 1.55 today. Estimated GFR is 54. Plan is to continue IV fluids at this time. 10/15/2019-serum creatinine today is 1.49. Improving. Patient is receiving IV fluids normal saline at 100 cc/h. 10/16/19-serum creatinine jumped to 2.32 today. On IV fluids normal saline at 100 cc/h plan increase the fluids to 150 cc/h. 10/17/2019-serum creatinine went up to 2.68 most likely secondary to vancomycin toxicity. Vancomycin is on hold. Renal ultrasound was requested to continue IV fluids normal saline 100 cc/h to recheck the labs tomorrow. (4) COPD (chronic obstructive pulmonary disease) Qualifiers: COPD type: unspecified COPD Qualified Code(s): J44.9 - Chronic obstructive pulmonary disease, unspecified Is this a current diagnosis for this admission?: No Plan: Albuterol, Atrovent, incentive spirometry and flutter valve. 10/16/2019-pulse ox today is 92% on 2 L. Comfortable in the chair communicating well. Not in distress. Chest bilateral entry was decreased no wheezing no crepitations. (5) Obesity (BMI 30-39.9) Is this a current diagnosis for this admission?: No Plan: 10/14/2019-BMI is more than 39 diet exercise weight loss lifestyle modifications discussed with the patient. (6) Salmonella enteritis Is this a current diagnosis for this admission?: Yes Plan: 10/16/2019-stool culture came back positive for Salmonella and Ciprofloxacillin 400 mg p.o. daily. 10/17/19-patient is receiving Cipro 500 mg p.o. twice daily for Salmonella in the stool.
--- NOTE | 2019-10-17 09:43 | RADIOLOGY REPORT (SQ) ---
EXAM DESCRIPTION: U/S RETROPERITON LTD IMAGES COMPLETED DATE/TIME: 10/17/2019 9:25 am REASON FOR STUDY: renal failure COMPARISON: None. TECHNIQUE: Dynamic and static grayscale images acquired of the kidneys and bladder and recorded on P ACS. Additional selected color Doppler and spectral images recorded. LIMITATIONS: None. FINDINGS: RIGHT KIDNEY: The right kidney is atrophic and it measures 8.2 cm in length. The echogen icity of the renal parenchyma is increased. There is no hydronephrosis, calcification or mass. LEFT KIDNEY: The left kidney measures 14.8 cm in length. The echogenicity of the renal parenchyma i s increased. There is no hydronephrosis, calcification or mass. BLADDER: No abnormality of the urinary bladder. OTHER FINDINGS: The prostate gland measures 3.3 x 3.3 x 2.6 cm. IMPRESSION: 1. Asymmetric atrophy of the right kidney. 2. Increased echogenicity of the renal parenchyma - correlate for underlying chronic medical renal di sease. There is no hydronephrosis. TECHNICAL DOCUMENTATION: JOB ID: [id number] 2010 [employer]- All Rights Reserved Reading location - IP/workstation name: [email or web address]
[2019-10-17] MEDS: ASCORBIC ACID 500 MG TABLET PO SCH ×2 (10:16→17:20)
[2019-10-17] MEDS: CITALOPRAM HYDROBROMIDE 20 MG TABLET PO SCH (10:16)
[2019-10-17] MEDS: NORMAL SALINE 1000 ML 1,000 ML IV PRN ×2 (10:16→19:30)
[2019-10-17] MEDS: PREGABALIN 75 MG CAPSULE PO SCH ×2 (10:16→21:18)
[2019-10-17] MEDS: ISOSORBIDE MONONITRATE 30 MG TAB.ER.24H PO SCH (10:16)
[2019-10-17] MEDS: ZINC SULFATE 220 MG CAPSULE PO SCH (10:16)
[2019-10-17] MEDS: METOPROLOL TARTRATE 25 MG TABLET PO SCH ×2 (10:16→21:19)
[2019-10-17] MEDS: CLOPIDOGREL BISULFATE 75 MG TABLET PO SCH (10:16)
[2019-10-17] MEDS: FLUTICASONE/VILANTEROL 100-25 MCG/DOSE IH SCH (10:18)
[2019-10-17] MEDS: LIDOCAINE 5% (700 MG) TRANSDERMAL ADH..PATCH TP SCH (10:18)
[2019-10-17] MEDS: CIPROFLOXACIN HCL 500 MG TABLET PO SCH (10:18)
[2019-10-17] MEDS: CEFTRIAXONE 1 GM/D5W RTU 1 GM/50 ML RTUPB IV SCH (10:20)
[2019-10-17] MEDS: ATORVASTATIN CALCIUM 40 MG TABLET PO SCH (21:18)
[2019-10-17] MEDS: PHARMACY COMMUNICATION ORDER MC SCH (21:20)
[2019-10-18] MEDS: OXYCODONE HCL IR 5 MG TABLET PO PRN ×4 (00:08→21:31)
[2019-10-18] MEDS: NORMAL SALINE 1000 ML 1,000 ML IV PRN ×3 (03:35→17:50)
[2019-10-18] MEDS: HEPARIN SOD (PORCINE) 5,000 UNIT/ML 1 ML VIAL SUBCUT SCH ×3 (05:32→21:28)
[2019-10-18 05:42] LABS: ABSOLUTE EOSINOPHILS # (AUTO) 0.1 10^3/uL (0.0-0.6); ABSOLUTE LYMPHOCYTES (AUTO) 2.1 10^3/uL (0.5-4.7); ABSOLUTE MONOCYTES (AUTO) 0.9 10^3/uL (0.1-1.4); ABSOLUTE NEUT (AUTO) 3.9 10^3/uL (1.7-8.2); BASOPHILS % (AUTO) 0.5 % (0-2); HEMATOCRIT 41.7 % (37.9-51.0); LYMPHOCYTES % (AUTO) 29.4 % (13-45); MEAN CORPUSCULAR HEMOGLOBIN 31.3 pg (27.0-33.4); MEAN CORPUSCULAR HGB CONC 33.7 g/dL (32.0-36.0); MEAN CORPUSCULAR VOLUME 93 fl (80-97); MONOCYTES % (AUTO) 13.3 % (3-13); PLATELET COUNT 118 10^3/uL (150-450); RED BLOOD COUNT 4.48 10^6/uL (4.35-5.55); RED CELL DISTRIBUTION WIDTH 14.5 % (11.5-14.0); SEGMENTED NEUTROPHILS % (AUTO) 55.8 % (42-78); TOTAL CELLS COUNTED % (AUTO) 100 %
[2019-10-18 05:58] LABS: ALBUMIN 2.7 g/dL (3.5-5.0); ALKALINE PHOSPHATASE 58 U/L (38-126); ANION GAP 8 (5-19); ASPARTATE AMINO TRANSFERASE 27 U/L (17-59); BILIRUBIN,TOTAL 0.3 mg/dL (0.2-1.3); BLOOD UREA NITROGEN 41 mg/dL (7-20); CALCIUM 7.7 mg/dL (8.4-10.2); CARBON DIOXIDE 20 mmol/L (22-30); CHLORIDE 105 mmol/L (98-107); GLUCOSE 90 mg/dL (75-110); POTASSIUM 3.5 mmol/L (3.6-5.0); TOTAL PROTEIN 5.5 g/dL (6.3-8.2)
[2019-10-18] MEDS: PANTOPRAZOLE SODIUM 40 MG TABLET.DR PO SCH (06:08)
--- NOTE | 2019-10-18 09:48 | PDOC PROGRESS REPORT ---
Subjective Progress Note for:: 10/18/19 Subjective:: 69 year old male with a past medical history of coronary artery disease with 5 stents, peripheral vascular disease with 3 distal stents, COPD, seizure, depression, anxiety and morbid obesity. He presents with 24 hours of abdominal pain nausea vomiting and diarrhea of gastric content without blood prompting evaluation emergency department where he is found to have fever, tachypnea, hypoxia, leukocytosis, hyponatremia, hyperkalemia and acute renal failure. Chest x-ray reveals a right lower lobe infiltrate. He is started on vancomycin and cefepime then referred to the hospitalist for admission. He denies known infectious or COVID contacts. He denies recent antibiotic use. 10/14/2019-C. difficile came back negative. Chest x-ray suggestive of right lower lobe pneumonia. Receiving vancomycin and cephapirin. Plan is to put him on Lomotil at this time. To repeat the labs tomorrow. 10/15/19-patient C. difficile is negative still continues have loose stools. He is on Lomotil at this time. Blood cultures are positive for gram-positive cocci presently on Vanco, cefepime, Flagyl. Afebrile. White cell count is improved to 11,400. Pulse ox is 94% 2 L. Plan is to continue the present management at this time. COVID test is pending. 10/16/2019-cover test came back negative. Stool culture is positive for Salmonella started on Cipro floxacillin. Creatinine went up to 2.32 urinary output is improved he is on IV fluids normal saline 100 cc/h. Plan is to increase the fluids to 150 cc/h. To repeat the labs tomorrow. Comfortably in the chair communicating well. Feeling better. Cultures are positive for gram- positive cocci on vancomycin. Vanco trough is around 10.3. 10/17/19-Vanco trough is 33 yesterday vancomycin was discontinued. Serum creatinine went up to 2.62 renal ultrasound was requested. Patient is receiving normal saline 100 cc/h. No acute event the last 24 hours. Afebrile. Blood pressure stable. 10/18/2019-no acute events in the last 24 hours. Creatinine improved to 2.52. Vancomycin was discontinued. Patient is presently on Cipro for Salmonella and IV Rocephin for Staphylococcus auricularis. Microbiology lab thinks it is contaminant. Reason For Visit: SEPSIS ARF PNEUMONIA Physical Exam Vital Signs: Temp Pulse Resp BP Pulse Ox 97.5 F 67 18 126/67 H 96 10/18/19 07:42 10/18/19 07:42 10/18/19 07:42 10/18/19 07:42 10/18/19 07:42 Intake & Output 10/17/19 10/18/19 10/19/19 06:59 06:59 06:59 Intake Total 4322 3225 Output Total 0 300 Balance 4322 2925 Weight 118.6 kg 120.5 kg General appearance: PRESENT: no acute distress, well-developed Head exam: PRESENT: atraumatic Eye exam: PRESENT: PERRLA Ear exam: PRESENT: normal external ear exam Mouth exam: PRESENT: neck supple Neck exam: ABSENT: carotid bruit, JVD, lymphadenopathy, thyromegaly Respiratory exam: PRESENT: decreased breath sounds Cardiovascular exam: PRESENT: RRR. ABSENT: diastolic murmur, rubs, systolic mur mur GI/Abdominal exam: PRESENT: normal bowel sounds, soft. ABSENT: distended, guarding, mass, organolmegaly, rebound, tenderness Rectal exam: PRESENT: deferred Extremities exam: PRESENT: full ROM. ABSENT: calf tenderness, clubbing, pedal edema Neurological exam: PRESENT: alert, awake, oriented to person, oriented to place, oriented to time, oriented to situation, CN II-XII grossly intact. ABSENT: motor sensory deficit Psychiatric exam: PRESENT: appropriate affect, normal mood. ABSENT: homicidal ideation, suicidal ideation Results Laboratory Results: 10/18/19 05:05 10/18/19 05:05 10/18/19 10/18/19 05:05 05:05 WBC 7.0 RBC 4.48 Hgb 14.0 Hct 41.7 MCV 93 MCH 31.3 MCHC 33.7 RDW 14.5 H Plt Count 118 L Seg Neutrophils % 55.8 Sodium 133.1 L Potassium 3.5 L Chloride 105 Carbon Dioxide 20 L Anion Gap 8 BUN 41 H Creatinine 2.52 H Est GFR ( Amer) 31 L Glucose 90 Calcium 7.7 L Magnesium 2.3 Total Bilirubin 0.3 AST 27 Alkaline Phosphatase 58 Total Protein 5.5 L Albumin 2.7 L 10/13/19 19:13 Blood Blood Culture - Final Staphylococcus Auricularis 10/14/19 04:05 Stool - Stool - Final 10/14/19 04:05 Stool - Stool Stool Culture - Final Salmonella Species 10/13/19 19:13 Troponin I < 0.012 Impressions: Chest X-Ray 10/13/19 18:58 IMPRESSION: Cannot exclude a limited left lower lobe pneumonia. Renal Ultrasound 10/17/19 00:00 IMPRESSION: 1. Asymmetric atrophy of the right kidney. 2. Increased echogenicity of the renal parenchyma - correlate for underlying chronic medical renal disease. There is no hydronephrosis. Assessment and Plan - Diagnosis (1) Pneumonia Is this a current diagnosis for this admission?: Yes Plan: Pneumonia care set, vancomycin, cefepime initiated, albuterol and Atrovent, follow-up CBC, blood culture and cover testing 10/14/2019-patient admitted for most likely community-acquired pneumonia. Blood cultures are pending. Covid test is pending. Presently on cefepime and vancomycin. Plan is to continue albuterol and Atrovent nebulizations. 10/15/2019-patient is getting IV cefepime, IV vancomycin, IV Flagyl. COVID test is pending. Patient is receiving scheduled and as needed nebulizations at this time. Blood cultures are positive for gram-positive cocci. 10/16/2019-WBC count is 9.4 within normal limits afebrile. Blood cultures are positive for gram-positive cocci waiting for the sensitivity report identification. Presently on IV vancomycin, trough is 10.3. Covid test is negative. Plan is to continue IV antibiotic therapy at this time. 10/17/2019-patient is afebrile pulse ox is 92% on room air WBC count is 7200. Blood cultures came back positive for Staphylococcus pansensitive. To start on IV Rocephin 1 g daily. Vancomycin trough is 33 and it was discontinued. 10/18/2019-patient is admitted with community-acquired pneumonia afebrile now pulse ox is 91% on room air blood cultures looks like contaminant Staphylococcus articularis. Receiving IV Rocephin. Stool culture is positive for Salmonella receiving Cipro floxacillin. (2) Hyperkalemia Is this a current diagnosis for this admission?: Yes Plan: No peak T waves, suspect underlying constipation, lactulose trial. Follow-up chemistry 10/14/2019-serum potassium is 5.2. Plan is to repeat the labs tomorrow. EKG within normal limits. 10/15/2019-serum potassium today is 4.0 hyperkalemia is resolved. 10/16/2019-serum potassium today is 3.5. Hyperkalemia is resolved. 10/17/2019-serum potassium today is 3.5 today. Hyperkalemia is resolved. 10/18/2019-serum potassium is 3.5 hyperkalemia is resolved. (3) Acute renal failure Is this a current diagnosis for this admission?: Yes Plan: Unclear cause, IV fluid challenge, avoid nephrotoxic meds and doses follow-up chemistry 10/14/2019-serum creatinine 1.55 today. Estimated GFR is 54. Plan is to continue IV fluids at this time. 10/15/2019-serum creatinine today is 1.49. Improving. Patient is receiving IV fluids normal saline at 100 cc/h. 10/16/19-serum creatinine jumped to 2.32 today. On IV fluids normal saline at 100 cc/h plan increase the fluids to 150 cc/h. 10/17/2019-serum creatinine went up to 2.68 most likely secondary to vancomycin toxicity. Vancomycin is on hold. Renal ultrasound was requested to continue IV fluids normal saline 100 cc/h to recheck the labs tomorrow. 10/18/2019-serum creatinine today is 2.52 improved from 2.68. Vancomycin is discontinued. Presently on IV fluids normal saline 100 cc/h. Patient is making good amount of urine. Renal ultrasound was was done no acute pathology seen. (4) COPD (chronic obstructive pulmonary disease) Qualifiers: COPD type: unspecified COPD Qualified Code(s): J44.9 - Chronic obstructive pulmonary disease, unspecified Is this a current diagnosis for this admission?: No Plan: Albuterol, Atrovent, incentive spirometry and flutter valve. 10/16/2019-pulse ox today is 92% on 2 L. Comfortable in the chair communicating well. Not in distress. Chest bilateral entry was decreased no wheezing no crepitations. (5) Obesity (BMI 30-39.9) Is this a current diagnosis for this admission?: No Plan: 10/14/2019-BMI is more than 39 diet exercise weight loss lifestyle modifications discussed with the patient. (6) Salmonella enteritis Is this a current diagnosis for this admission?: Yes Plan: 10/16/2019-stool culture came back positive for Salmonella and Ciprofloxacillin 400 mg p.o. daily. 10/17/19-patient is receiving Cipro 500 mg p.o. twice daily for Salmonella in the stool.
[2019-10-18] MEDS ORDERED: VANCOMYCIN HCL 1,250 MG in DEXTROSE 5%-WATER 250 ML IV SCH (10:00)
[2019-10-18] MEDS: ZINC SULFATE 220 MG CAPSULE PO SCH (10:35)
[2019-10-18] MEDS: LIDOCAINE 5% (700 MG) TRANSDERMAL ADH..PATCH TP SCH (10:35)
[2019-10-18] MEDS: METOPROLOL TARTRATE 25 MG TABLET PO SCH ×2 (10:35→21:32)
[2019-10-18] MEDS: ASCORBIC ACID 500 MG TABLET PO SCH ×2 (10:35→17:50)
[2019-10-18] MEDS: CITALOPRAM HYDROBROMIDE 20 MG TABLET PO SCH (10:35)
[2019-10-18] MEDS: CIPROFLOXACIN HCL 500 MG TABLET PO SCH (10:35)
[2019-10-18] MEDS: PREGABALIN 75 MG CAPSULE PO SCH ×2 (10:35→21:32)
[2019-10-18] MEDS: CLOPIDOGREL BISULFATE 75 MG TABLET PO SCH (10:35)
[2019-10-18] MEDS: ISOSORBIDE MONONITRATE 30 MG TAB.ER.24H PO SCH (10:35)
[2019-10-18] MEDS: CEFTRIAXONE 1 GM/D5W RTU 1 GM/50 ML RTUPB IV SCH (10:36)
[2019-10-18] MEDS: FLUTICASONE/VILANTEROL 100-25 MCG/DOSE IH SCH (10:36)
[2019-10-18] MEDS: PHARMACY COMMUNICATION ORDER MC SCH (21:28)
[2019-10-18] MEDS: ATORVASTATIN CALCIUM 40 MG TABLET PO SCH (21:32)
[2019-10-19] MEDS: OXYCODONE HCL IR 5 MG TABLET PO PRN (03:27)
[2019-10-19] MEDS: NORMAL SALINE 1000 ML 1,000 ML IV PRN (03:29)
[2019-10-19 05:38] LABS: ABSOLUTE EOSINOPHILS # (AUTO) 0.1 10^3/uL (0.0-0.6); ABSOLUTE LYMPHOCYTES (AUTO) 2.2 10^3/uL (0.5-4.7); ABSOLUTE NEUT (AUTO) 5.1 10^3/uL (1.7-8.2); BASOPHILS % (AUTO) 0.6 % (0-2); EOSINOPHILS % (AUTO) 1.3 % (0-6); HEMATOCRIT 41.9 % (37.9-51.0); HEMOGLOBIN 14.3 g/dL (13.5-17.0); LYMPHOCYTES % (AUTO) 26.3 % (13-45); MEAN CORPUSCULAR HEMOGLOBIN 31.7 pg (27.0-33.4); MEAN CORPUSCULAR VOLUME 93 fl (80-97); MONOCYTES % (AUTO) 11.4 % (3-13); PLATELET COUNT 130 10^3/uL (150-450); RED CELL DISTRIBUTION WIDTH 14.5 % (11.5-14.0); SEGMENTED NEUTROPHILS % (AUTO) 60.4 % (42-78); TOTAL CELLS COUNTED % (AUTO) 100 %; WHITE BLOOD COUNT 8.4 10^3/uL (4.0-10.5)
[2019-10-19 06:07] LABS: ALBUMIN 2.8 g/dL (3.5-5.0); ALKALINE PHOSPHATASE 59 U/L (38-126); ANION GAP 6 (5-19); ASPARTATE AMINO TRANSFERASE 35 U/L (17-59); BILIRUBIN,TOTAL 0.3 mg/dL (0.2-1.3); BLOOD UREA NITROGEN 37 mg/dL (7-20); CALCIUM 7.9 mg/dL (8.4-10.2); CARBON DIOXIDE 20 mmol/L (22-30); CHLORIDE 110 mmol/L (98-107); GLUCOSE 86 mg/dL (75-110); POTASSIUM 4.1 mmol/L (3.6-5.0); TOTAL PROTEIN 5.7 g/dL (6.3-8.2)
[2019-10-19] MEDS: HEPARIN SOD (PORCINE) 5,000 UNIT/ML 1 ML VIAL SUBCUT SCH (06:20)
[2019-10-19] MEDS: PANTOPRAZOLE SODIUM 40 MG TABLET.DR PO SCH (06:25)
[2019-10-19] MEDS: FLUTICASONE/VILANTEROL 100-25 MCG/DOSE IH SCH (10:31)
[2019-10-19] MEDS: CITALOPRAM HYDROBROMIDE 20 MG TABLET PO SCH (10:31)
[2019-10-19] MEDS: LIDOCAINE 5% (700 MG) TRANSDERMAL ADH..PATCH TP SCH (10:32)
[2019-10-19] MEDS: ISOSORBIDE MONONITRATE 30 MG TAB.ER.24H PO SCH (10:32)
[2019-10-19] MEDS: METOPROLOL TARTRATE 25 MG TABLET PO SCH (10:32)
[2019-10-19] MEDS: ASCORBIC ACID 500 MG TABLET PO SCH (10:33)
[2019-10-19] MEDS: CEFTRIAXONE 1 GM/D5W RTU 1 GM/50 ML RTUPB IV SCH (10:33)
[2019-10-19] MEDS: ZINC SULFATE 220 MG CAPSULE PO SCH (10:33)
[2019-10-19] MEDS: PREGABALIN 75 MG CAPSULE PO SCH (10:33)
[2019-10-19] MEDS: CLOPIDOGREL BISULFATE 75 MG TABLET PO SCH (10:33)
--- NOTE | 2019-10-19 10:36 | PDOC DISCHARGE SUMMARY ---
Impression - Admit/DC Date/PCP Admission Date/Primary Care Provider: 10/13/19 22:50 KEAGAN ABREU Discharge Date: 10/19/19 - Discharge Diagnosis (1) Pneumonia Is this a current diagnosis for this admission?: Yes (2) Hyperkalemia Is this a current diagnosis for this admission?: Yes (3) Acute renal failure Is this a current diagnosis for this admission?: Yes (4) COPD (chronic obstructive pulmonary disease) Is this a current diagnosis for this admission?: No (5) Obesity (BMI 30-39.9) Is this a current diagnosis for this admission?: No (6) Salmonella enteritis Is this a current diagnosis for this admission?: Yes - Assessment Summary: (1) Pneumonia Is this a current diagnosis for this admission?: Yes Plan: Pneumonia care set, vancomycin, cefepime initiated, albuterol and Atrovent, follow-up CBC, blood culture and cover testing 10/14/2019-patient admitted for most likely community-acquired pneumonia. Blood cultures are pending. Covid test is pending. Presently on cefepime and vancomycin. Plan is to continue albuterol and Atrovent nebulizations. 10/15/2019-patient is getting IV cefepime, IV vancomycin, IV Flagyl. COVID test is pending. Patient is receiving scheduled and as needed nebulizations at this time. Blood cultures are positive for gram-positive cocci. 10/16/2019-WBC count is 9.4 within normal limits afebrile. Blood cultures are positive for gram-positive cocci waiting for the sensitivity report identification. Presently on IV vancomycin, trough is 10.3. Covid test is negative. Plan is to continue IV antibiotic therapy at this time. 10/17/2019-patient is afebrile pulse ox is 92% on room air WBC count is 7200. Blood cultures came back positive for Staphylococcus pansensitive. To start on IV Rocephin 1 g daily. Vancomycin trough is 33 and it was discontinued. 10/18/2019-patient is admitted with community-acquired pneumonia afebrile now pulse ox is 91% on room air blood cultures looks like contaminant Staphylococcus articularis. Receiving IV Rocephin. Stool culture is positive for Salmonella receiving Cipro floxacillin. 10/19/2019-stool culture came back positive for Salmonella and results are reported to the state, patient is on Cipro floxacillin no diarrhea is reported in the last 48 hours. Patient is expressing desire to go home today. (2) Hyperkalemia Is this a current diagnosis for this admission?: Yes Plan: No peak T waves, suspect underlying constipation, lactulose trial. Follow-up chemistry 10/14/2019-serum potassium is 5.2. Plan is to repeat the labs tomorrow. EKG within normal limits. 10/15/2019-serum potassium today is 4.0 hyperkalemia is resolved. 10/16/2019-serum potassium today is 3.5. Hyperkalemia is resolved. 10/17/2019-serum potassium today is 3.5 today. Hyperkalemia is resolved. 10/18/2019-serum potassium is 3.5 hyperkalemia is resolved. (3) Acute renal failure Is this a current diagnosis for this admission?: Yes Plan: Unclear cause, IV fluid challenge, avoid nephrotoxic meds and doses follow-up chemistry 10/14/2019-serum creatinine 1.55 today. Estimated GFR is 54. Plan is to continue IV fluids at this time. 10/15/2019-serum creatinine today is 1.49. Improving. Patient is receiving IV fluids normal saline at 100 cc/h. 10/16/19-serum creatinine jumped to 2.32 today. On IV fluids normal saline at 100 cc/h plan increase the fluids to 150 cc/h. 10/17/2019-serum creatinine went up to 2.68 most likely secondary to vancomycin toxicity. Vancomycin is on hold. Renal ultrasound was requested to continue IV fluids normal saline 100 cc/h to recheck the labs tomorrow. 10/18/2019-serum creatinine today is 2.52 improved from 2.68. Vancomycin is discontinued. Presently on IV fluids normal saline 100 cc/h. Patient is making good amount of urine. Renal ultrasound was was done no acute pathology seen. 10/19/2019-serum creatinine improved to 2.33 patient has only 1 functioning kidney with right kidney atrophy, patient is advised to stay in the hospital for continued IV fluids but he prefers to go home. I tried my best to convince him to stay in the hospital but again he prefers to go home. (4) COPD (chronic obstructive pulmonary disease) Qualifiers: COPD type: unspecified COPD Qualified Code(s): J44.9 - Chronic obstructive pulmonary disease, unspecified Is this a current diagnosis for this admission?: No Plan: Albuterol, Atrovent, incentive spirometry and flutter valve. 10/16/2019-pulse ox today is 92% on 2 L. Comfortable in the chair communicating well. Not in distress. Chest bilateral entry was decreased no wheezing no crepitations. 10/19/2019-patient has history of COPD on examination bilateral entry was decreased on pulse ox is 93% on room air. (5) Obesity (BMI 30-39.9) Is this a current diagnosis for this admission?: No Plan: 10/14/2019-BMI is more than 39 diet exercise weight loss lifestyle modifications discussed with the patient. (6) Salmonella enteritis Is this a current diagnosis for this admission?: Yes Plan: 10/16/2019-stool culture came back positive for Salmonella and Ciprofloxacillin 400 mg p.o. daily. 10/17/19-patient is receiving Cipro 500 mg p.o. twice daily for Salmonella in the stool. 10/19/2019-patient was given a prescription for Cipro 5 mg p.o. twice daily for 5 days. - Additional Information Resuscitation Status: Full Code Discharge Diet: Diabetic Discharge Activity: Activity As Tolerated Referrals: EMERSON HURST FNP-C [Primary Care Provider] - Follow up as needed Prescriptions: Ciprofloxacin HCl [Cipro 500 mg Tablet] 500 mg PO DAILY 10 Days #10 tablet Zinc Sulfate [Zinc-220 Capsule] 440 mg PO DAILY 30 Days #30 capsule Home Medications: Atorvastatin Calcium [Lipitor 40 mg Tablet] 40 mg PO QHS 04/04/18 Citalopram Hydrobromide [Celexa 20 mg Tablet] 20 mg PO DAILY 04/04/18 Clopidogrel Bisulfate [Plavix 75 mg Tablet] 75 mg PO DAILY 04/04/18 Ipratropium/Albuterol Sulfate [Combivent Respimat 4 gm Mdi] 1 puff IH Q6 04/04/18 Omeprazole 40 mg PO Q6AM 04/04/18 Budesonide/Formoterol Fumarate [Symbicort HFA 80-4.5 mcg Inhaler 6.9 gm] 2 puff IH Q12 04/05/18 Isosorbide Mononitrate [Imdur 30 mg Tablet.er] 30 mg PO DAILY tab.er.24h 04/06/18 Metoprolol Tartrate [Lopressor 25 mg Tablet] 25 mg PO Q12 tablet 04/06/18 Pregabalin [Lyrica 75 mg Capsule] 75 mg PO Q12 capsule 04/06/18 Lidocaine [Lidoderm 5% (700 mg) Transdermal Patch] 1 patch TP DAILY 10/14/19 Ciprofloxacin HCl [Cipro 500 mg Tablet] 500 mg PO DAILY 10 Days #10 tablet 10/19/19 Zinc Sulfate [Zinc-220 Capsule] 440 mg PO DAILY 30 Days #30 capsule 10/19/19 History of Present Illiness History of Present Illness: LILLY VEGA is a 69 year old male 69 year old male with a past medical history of coronary artery disease with 5 stents, peripheral vascular disease with 3 distal stents, COPD, seizure, depression, anxiety and morbid obesity. He presents with 24 hours of abdominal pain nausea vomiting and diarrhea of gastric content without blood prompting evaluation emergency department where he is found to have fever, tachypnea, hypoxia, leukocytosis, hyponatremia, hyperkalemia and acute renal failure. Chest x-ray reveals a right lower lobe infiltrate. He is started on vancomycin and cefepime then referred to the hospitalist for admission. He denies known infectious or COVID contacts. He denies recent antibiotic use. Hospital Course Hospital Course: 69 year old male with a past medical history of coronary artery disease with 5 stents, peripheral vascular disease with 3 distal stents, COPD, seizure, depression, anxiety and morbid obesity. He presents with 24 hours of abdominal pain nausea vomiting and diarrhea of gastric content without blood prompting evaluation emergency department where he is found to have fever, tachypnea, hypoxia, leukocytosis, hyponatremia, hyperkalemia and acute renal failure. Chest x-ray reveals a right lower lobe infiltrate. He is started on vancomycin and cefepime then referred to the hospitalist for admission. He denies known infectious or COVID contacts. He denies recent antibiotic use. 10/14/2019-C. difficile came back negative. Chest x-ray suggestive of right lower lobe pneumonia. Receiving vancomycin and cephapirin. Plan is to put him on Lomotil at this time. To repeat the labs tomorrow. 10/15/19-patient C. difficile is negative still continues have loose stools. He is on Lomotil at this time. Blood cultures are positive for gram-positive cocci presently on Vanco, cefepime, Flagyl. Afebrile. White cell count is improved to 11,400. Pulse ox is 94% 2 L. Plan is to continue the present management at this time. COVID test is pending. 10/16/2019-cover test came back negative. Stool culture is positive for Salmonella started on Cipro floxacillin. Creatinine went up to 2.32 urinary output is improved he is on IV fluids normal saline 100 cc/h. Plan is to increase the fluids to 150 cc/h. To repeat the labs tomorrow. Comfortably in the chair communicating well. Feeling better. Cultures are positive for gram- positive cocci on vancomycin. Vanco trough is around 10.3. 10/17/19-Vanco trough is 33 yesterday vancomycin was discontinued. Serum creatinine went up to 2.62 renal ultrasound was requested. Patient is receiving normal saline 100 cc/h. No acute event the last 24 hours. Afebrile. Blood pressure stable. 10/18/2019-no acute events in the last 24 hours. Creatinine improved to 2.52. Vancomycin was discontinued. Patient is presently on Cipro for Salmonella and IV Rocephin for Staphylococcus auricularis. Microbiology lab thinks it is contaminant. 10/19/2019-patient is doing well kidney function slightly improved compared to yesterday. Patient is getting ciprofloxacin for Salmonella gastroenteritis, patient is advised to stay at least another day for continuous IV fluid therapy and repeat lab work tomorrow but the patient prefers to go home today. I tried to convince him to stay but he said he will be okay to go home today. I tried to call his on to discuss the discharge plan but unable to reach her. Physical Exam Vital Signs: Temp Pulse Resp BP Pulse Ox 97.6 F 68 16 106/50 L 99 10/19/19 08:11 10/19/19 08:11 10/19/19 08:11 10/19/19 08:11 10/19/19 08:11 Intake & Output 10/18/19 10/19/19 10/20/19 06:59 06:59 06:59 Intake Total 3225 3998 Output Total 300 1200 Balance 2925 2798 Weight 120.5 kg 122.9 kg General appearance: PRESENT: no acute distress, well-developed Head exam: PRESENT: atraumatic Eye exam: PRESENT: PERRLA Mouth exam: PRESENT: moist, tongue midline Teeth exam: PRESENT: poor dentation Neck exam: ABSENT: carotid bruit, JVD, lymphadenopathy, thyromegaly Respiratory exam: PRESENT: decreased breath sounds Cardiovascular exam: PRESENT: RRR. ABSENT: diastolic murmur, rubs, systolic murmur GI/Abdominal exam: PRESENT: normal bowel sounds, soft. ABSENT: distended, guarding, mass, organolmegaly, rebound, tenderness Rectal exam: PRESENT: deferred Extremities exam: PRESENT: full ROM. ABSENT: calf tenderness, clubbing, pedal edema Neurological exam: PRESENT: alert, awake, oriented to person, oriented to place, oriented to time, oriented to situation, CN II-XII grossly intact. ABSENT: motor sensory deficit Psychiatric exam: PRESENT: appropriate affect, normal mood. ABSENT: homicidal ideation, suicidal ideation Results Laboratory Results: WBC 8.4 10^3/uL (4.0-10.5) 10/19/19 04:55 RBC 4.50 10^6/uL (4.35-5.55) 10/19/19 04:55 Hgb 14.3 g/dL (13.5-17.0) 10/19/19 04:55 Hct 41.9 % (37.9-51.0) 10/19/19 04:55 MCV 93 fl (80-97) 10/19/19 04:55 MCH 31.7 pg (27.0-33.4) 10/19/19 04:55 MCHC 34.0 g/dL (32.0-36.0) 10/19/19 04:55 RDW 14.5 % (11.5-14.0) H 10/19/19 04:55 Plt Count 130 10^3/uL (150-450) L 10/19/19 04:55 Lymph % (Auto) 26.3 % (13-45) 10/19/19 04:55 [place] % (Auto) 11.4 % (3-13) 10/19/19 04:55 Eos % (Auto) 1.3 % (0-6) 10/19/19 04:55 Baso % (Auto) 0.6 % (0-2) 10/19/19 04:55 Absolute Neuts (auto) 5.1 10^3/uL (1.7-8.2) 10/19/19 04:55 Absolute Lymphs (auto) 2.2 10^3/uL (0.5-4.7) 10/19/19 04:55 Absolute Monos (auto) 1.0 10^3/uL (0.1-1.4) 10/19/19 04:55 Absolute Eos (auto) 0.1 10^3/uL (0.0-0.6) 10/19/19 04:55 Absolute Basos (auto) 0.0 10^3/uL (0.0-0.2) 10/19/19 04:55 Seg Neutrophils % 60.4 % (42-78) 10/19/19 04:55 PT 12.6 SEC (11.4-15.4) 10/13/19 19:13 INR 0.94 10/13/19 19:13 VBG pH 7.37 (7.30-7.42) 10/13/19 20:00 VBG pCO2 46.5 mmHg (35-63) 10/13/19 20:00 VBG HCO3 26.3 mmol/L (20-32) 10/13/19 20:00 VBG Base Excess 0.3 mmol/L 10/13/19 20:00 Sodium 135.7 mmol/L (137-145) L 10/19/19 04:55 Potassium 4.1 mmol/L (3.6-5.0) 10/19/19 04:55 Chloride 110 mmol/L (98-107) H 10/19/19 04:55 Carbon Dioxide 20 mmol/L (22-30) L 10/19/19 04:55 Anion Gap 6 (5-19) 10/19/19 04:55 BUN 37 mg/dL (7-20) H 10/19/19 04:55 Creatinine 2.31 mg/dL (0.52-1.25) H 10/19/19 04:55 Est GFR ( Amer) 34 (>60) L 10/19/19 04:55 Est GFR (MDRD) Non-Af 28 (>60) L 10/19/19 04:55 Glucose 86 mg/dL (75-110) 10/19/19 04:55 Lactic Acid 1.5 mmol/L (0.7-2.1) 10/14/19 02:46 Calcium 7.9 mg/dL (8.4-10.2) L 10/19/19 04:55 Magnesium 2.2 mg/dL (1.6-2.3) 10/19/19 04:55 Total Bilirubin 0.3 mg/dL (0.2-1.3) 10/19/19 04:55 Direct Bilirubin 0.0 mg/dL (0.0-0.4) 10/19/19 04:55 Neonat Total Bilirubin Not Reportable 10/19/19 04:55 Neonat Direct Bilirubin Not Reportable 10/19/19 04:55 Neonat Indirect Bili Not Reportable 10/19/19 04:55 AST 35 U/L (17-59) 10/19/19 04:55 ALT 22 U/L (<50) 10/19/19 04:55 Alkaline Phosphatase 59 U/L (38-126) 10/19/19 04:55 Troponin I < 0.012 ng/mL 10/13/19 19:13 Total Protein 5.7 g/dL (6.3-8.2) L 10/19/19 04:55 Albumin 2.8 g/dL (3.5-5.0) L 10/19/19 04:55 Urine Color ZULMA 10/13/19 23:34 Urine Appearance SLIGHTLY-CLOUDY 10/13/19 23:34 Urine pH 5.0 (5.0-9.0) 10/13/19 23:34 Ur Specific [place] 1.029 10/13/19 23:34 Urine Protein 100 mg/dL (NEGATIVE) H 10/13/19 23:34 Urine Glucose (UA) NEGATIVE mg/dL (NEGATIVE) 10/13/19 23:34 Urine Ketones TRACE mg/dL (NEGATIVE) H 10/13/19 23:34 Urine Blood MODERATE (NEGATIVE) H 10/13/19 23:34 Urine Nitrite NEGATIVE (NEGATIVE) 10/13/19 23:34 Urine Bilirubin NEGATIVE (NEGATIVE) 10/13/19 23:34 Urine Urobilinogen NEGATIVE mg/dL (<2.0) 10/13/19 23:34 Ur Leukocyte Esterase NEGATIVE (NEGATIVE) 10/13/19 23:34 Urine WBC (Auto) 4 /HPF 10/13/19 23:34 Urine RBC (Auto) 7 /HPF 10/13/19 23:34 U Hyaline Cast (Auto) 9 /LPF 10/13/19 23:34 Squamous Epi Cells Auto 1 /HPF 10/13/19 23:34 Urine Mucus (Auto) MANY /LPF 10/13/19 23:34 Urine Ascorbic Acid NEGATIVE (NEGATIVE) 10/13/19 23:34 Stl C. Difficile GDH Ag NEGATIVE (NEGATIVE) 10/14/19 04:05 Stl C.difficile Tox A&B NEGATIVE (NEGATIVE) 10/14/19 04:05 Time Trough Drawn 1705 10/16/19 17:05 Vancomycin Trough 33.2 ug/mL (5.0-20.0) H 10/16/19 17:05 COVID-19 Source NASOPHARYNGEAL 10/14/19 01:11 COVID-19 (HILARIO) NOT DETECTED 10/14/19 01:11 10/13/19 19:13 Troponin I < 0.012 Impressions: Chest X-Ray 10/13/19 18:58 IMPRESSION: Cannot exclude a limited left lower lobe pneumonia. Renal Ultrasound 10/17/19 00:00 IMPRESSION: 1. Asymmetric atrophy of the right kidney. 2. Increased echogenicity of the renal parenchyma - correlate for underlying chronic medical renal disease. There is no hydronephrosis. Plan Plan of Treatment: 10/19/2019-patient is going home today and daily is advised to follow-up with PCP in few days to repeat the lab work. And patient is advised to be compliant with her antibiotic therapy for Salmonella enteritis. Time Spent: Greater than 30 Minutes Stroke Is this a Stroke Patient?: No Acute Heart Failure - Is this a Heart Failure Patient?: No
[2019-10-19] MEDS: CIPROFLOXACIN HCL 500 MG TABLET PO SCH (10:53)
[2019-10-19 11:17] VITALS: BP 107/74
== END 2019-10-19 11:44 | disposition home or self-care (01) | DRG 871 ==
LOC: ER 18:28 → EH 22:50 → 3N 10-14 02:40 → EH 10-14 02:50 → 5 10-14 04:07 → 3N 10-15 23:40 → 5 10-17 18:23
PROVIDERS: ADMIT Internal Medicine; ATTEND Internal Medicine
DX: A41.9 Sepsis, unspecified organism (principal); J18.9 Pneumonia, unspecified organism; N17.9 Acute kidney failure, unspecified; A02.0 Salmonella enteritis; J44.0 Chronic obstructive pulmonary disease with (acute) lower respiratory infection; E87.1 Hypo-osmolality and hyponatremia; I25.10 Atherosclerotic heart disease of native coronary artery without angina pectoris; E66.01 Morbid (severe) obesity due to excess calories; I73.9 Peripheral vascular disease, unspecified; F32.9 Major depressive disorder, single episode, unspecified; F41.9 Anxiety disorder, unspecified; Z20.828 Contact with and (suspected) exposure to other viral communicable diseases; K59.00 Constipation, unspecified; R65.20 Severe sepsis without septic shock; E87.5 Hyperkalemia; E78.00 Pure hypercholesterolemia, unspecified; K44.9 Diaphragmatic hernia without obstruction or gangrene; Z68.39 Body mass index [BMI] 39.0-39.9, adult; I25.2 Old myocardial infarction; Z79.899 Other long term (current) drug therapy; Z79.02 Long term (current) use of antithrombotics/antiplatelets; Z95.5 Presence of coronary angioplasty implant and graft; Z87.891 Personal history of nicotine dependence; Z79.82 Long term (current) use of aspirin; Z79.51 Long term (current) use of inhaled steroids
CPT/HCPCS: 36415; 71045; 76775; 80053; 80202; 81001; 82803; 83605; 83735; 84484; 85025; 85610; 87040; 87045; 87070; 87077; 87186; 87205; 87324; 87449; 87635; 93005; 93010; 94667; 94668; 94799; 96361; 96365; 96372; 96375; 99285; C9803; J0692; J0696; J1644; J2405; J3370; J3490; J7030; J7060; J7120; J7620

== ENCOUNTER → 2019-10-29 | Outpatient (CLI) | payer MEDICARE, OTHER ==
[2019-10-29 13:30] LABS: HEMATOCRIT 47.5 % (37.9-51.0); HEMOGLOBIN 16.3 g/dL (13.5-17.0); MEAN CORPUSCULAR HGB CONC 34.2 g/dL (32.0-36.0); MEAN CORPUSCULAR VOLUME 94 fl (80-97); RED BLOOD COUNT 5.08 10^6/uL (4.35-5.55); RED CELL DISTRIBUTION WIDTH 14.4 % (11.5-14.0); WHITE BLOOD COUNT 14.1 10^3/uL (4.0-10.5)
[2019-10-29 13:49] LABS: ALBUMIN 3.9 g/dL (3.5-5.0); ALKALINE PHOSPHATASE 87 U/L (38-126); ANION GAP 7 (5-19); ASPARTATE AMINO TRANSFERASE 31 U/L (17-59); BILIRUBIN,DIRECT 0.2 mg/dL (0.0-0.4); BILIRUBIN,TOTAL 0.7 mg/dL (0.2-1.3); BLOOD UREA NITROGEN 26 mg/dL (7-20); CALCIUM 9.1 mg/dL (8.4-10.2); CARBON DIOXIDE 27 mmol/L (22-30); CHLORIDE 103 mmol/L (98-107); CHOLESTEROL 146.05 mg/dL (0-200); GLUCOSE 107 mg/dL (75-110); POTASSIUM 5.6 mmol/L (3.6-5.0); TRIGLYCERIDES 157 mg/dL (<150)
[2019-10-29 14:00] LABS: DIRECT LDL 76 mg/dL (<100)
[2019-10-29 14:13] LABS: VLDL CHOLESTEROL 31.4 mg/dL (10-31)
[2019-10-29 14:43] LABS: PLATELET COUNT 179 10^3/uL (150-450)
[2019-10-29 14:45] LABS: ABSOLUTE LYMPHOCYTES# (MANUAL) 3.8 10^3/uL (0.5-4.7); ABSOLUTE MONOCYTES # (MANUAL) 1.7 10^3/uL (0.1-1.4); BASOPHILS % (MANUAL) 1 % (0-2); EOSINOPHILS % (MANUAL) 0 % (0-6); LYMPHOCYTES % (MANUAL) 27 % (13-45); MONOCYTES % (MANUAL) 12 % (3-13); SEGMENTED NEUTROPHILS % (MAN) 60 % (42-78); TOTAL CELLS COUNTED 100
[2019-10-29 14:46] LABS: ANISOCYTOSIS SLIGHT; PLATELET CLUMPS PRESENT; PLATELET COMMENT ADEQUATE
== END ==
LOC: OD 12:45
PROVIDERS: ATTEND Family Medicine
DX: J18.9 Pneumonia, unspecified organism (principal); E78.2 Mixed hyperlipidemia; R73.03 Prediabetes
CPT/HCPCS: 36415; 80053; 80061; 83036; 85025

== ENCOUNTER 2020-02-18 06:57 | Day surgery (SDC) | payer MEDICARE, OTHER ==
[2020-02-18] MEDS ORDERED: PROPOFOL INJ 200 MG/20 ML VIAL IV ONE (07:35)
--- NOTE | 2020-02-18 08:20 | Operative Report ---
Operative Report DATE OF SURGERY: 02/18/20 Operative Report: The risk, benefits and alternatives of the procedure including the risks of bleeding, perforation requiring surgery have been explained to the patient in detail and informed consent has been obtained. Patient is placed in left, lateral decubital position. Timeout was called. Propofol medication is administered. Rectal examination is done which did not reveal any masses, tears or fissures. An Olympus videoscope was introduced into the patient's rectum. Scope was then carefully advanced all the way to the cecum. Cecum was identified by the usual anatomical landmarks of the ileocecal valve as well as the appendiceal office. Due to ileocecal valve thickening biopsies were obtained and intubation of the terminal ileum was done which revealed normal mucosa. Prep was good. Scope was then sequentially pulled back via the various segments of the colon including the ascending colon, hepatic flexure, transverse colon, splenic flexure, descending colon and finally into the rectosigmoid portions of the colon. Retroflexion maneuver is performed. The risks benefits and alternatives of the procedure explained to the patient in detail and informed consent is obtained.A GIF Olympus video scope was inserted into the patient's mouth and hypopharynx, the esophagus is identified intubated and insufflated, the scope was then advanced through the esophagus stomach and duodenum, retroflexion maneuver is done ,the esophagus stomach and first and second portions of the duodenum examined PREOPERATIVE DIAGNOSIS: Personal history of polyp. Gastroesophageal reflux disease POSTOPERATIVE DIAGNOSIS: Inflammation at the ileocecal valve status post biopsy. Normal terminal ileum. Diverticulosis and ovarian side of the colon. Internal hemorrhoids. Gastritis status post biopsy OPERATION: Colonoscopy with biopsy. EGD with biopsy SURGEON: SOFI RODRIGUEZ ANESTHESIA: LMAC TISSUE REMOVED OR ALTERED: As noted above. COMPLICATIONS: None. ESTIMATED BLOOD LOSS: None. INTRAOPERATIVE FINDINGS: As noted above. PROCEDURE: Patient tolerated the procedure well. No immediate postprocedure complications are noted. Patient is discharged in good condition. Discharge date 02/18/2020. Discharge diet: Regular. Discharge activity: Regular. 2 to 3-week follow-up to discuss findings. Patient is instructed call the office or proceed to the emergency room should there be any further problems or questions. Wait on the pathology.
[2020-02-18 08:48] VITALS: BP 124/76
== END 2020-02-18 08:50 | disposition home or self-care (01) ==
LOC: END 06:57
PROVIDERS: ATTEND Internal Medicine Gastroenterology
DX: K29.50 Unspecified chronic gastritis without bleeding (principal); K44.9 Diaphragmatic hernia without obstruction or gangrene; K64.8 Other hemorrhoids; K57.30 Diverticulosis of large intestine without perforation or abscess without bleeding; I25.10 Atherosclerotic heart disease of native coronary artery without angina pectoris; I73.9 Peripheral vascular disease, unspecified; J44.9 Chronic obstructive pulmonary disease, unspecified; E78.2 Mixed hyperlipidemia; Z95.5 Presence of coronary angioplasty implant and graft; K21.00 Gastro-esophageal reflux disease with esophagitis, without bleeding; Z79.01 Long term (current) use of anticoagulants; Z86.19 Personal history of other infectious and parasitic diseases; Z79.899 Other long term (current) drug therapy; Z79.82 Long term (current) use of aspirin; Z03.818 Encounter for observation for suspected exposure to other biological agents ruled out; Z86.010 Personal history of colon polyps
CPT/HCPCS: 43239; 45380; 88305 ×2; U0003; J2704; C9803; 87635; 88342